=== PATIENT | male | born 1980 | race Hispanic/Latino ===

== ENCOUNTER 2016-08-20 18:03 | Emergency (ER) | payer OTHER ==
[~2016-08-20 18:03] MED LIST: ABIL2TAB2 PO; ACET120S PO; AMMO12CR4 EX; BUSP10TA PO; BUSP15TA47 PO; CELE40TA PO; HYDR10T PO; HYDR25T PO; IBUP80TA PO; LIPI10TA PO; NAPR500T2 PO; NORCOTAB PO; OMEP20CA3 PO; OMEP40CA2 PO; PAXI30TA11 PO; PRAZ1CAP PO; TRAZ100T4 PO; VITA100T PO; ZETI10TA2 PO; lortab elixer PO
[2016-08-20] MEDS ORDERED: KETOROLAC 30 MG/ML VIAL (J1885) As Ordered ONE (19:46)
[2016-08-20] MEDS ORDERED: METHOCARBAMOL 500 MG TAB As Ordered ONE (19:46)
--- NOTE | 2016-08-20 20:37 | EDDOCDS ---
Physician Documentation [facility] Name: Cy Preciado Age: 35 yrs Sex: Male : 1980 Arrival Date: 08/20/2016 Time: 18:03 Bed Private MD: NO PRIMARY PHYSICIAN, . Disposition: 08/20/16 20:30 Discharged to Home/Self Care. Impression: Strain of muscle, fascia and tendon of lower back. - Condition is Stable. - Discharge Instructions: Lumbosacral Strain, Back Pain, Adult, Muscle Strain. - Prescriptions for Ibuprofen 800 mg Oral Tablet - take 1 tablet by ORAL route every 8 hours As needed take with food; 30 tablet. Robaxin 500 mg Oral Tablet - take 2 tablet by ORAL route every 6 hours As needed; 40 tablet. - Medication Reconciliation, Local Pharmacy Hours form. - [facility]; When: Call to arrange an appointment; Reason: Recheck today's complaints, Continuance of care. - Problem is new. - Symptoms are unchanged. Historical: - Allergies: no known allergies; - Home Meds: 1. Paxil 20 mg oral tab 2. hydroxyzine HCl 25 mg Oral tab 1 tab 3 times per day 3. Risperdal 1 mg Oral tab 1 tab once daily HS 4. Lipitor 10 mg Oral tab 1 tab once daily 5. Zetia 10 mg Oral tab 1 tab once daily 6. omeprazole 20 mg Oral cpDR 1 cap once daily - PMHx: Anxiety; Depression; drug abuse; Hypercholesterolemia; - PSHx: Right rotator cuff repair; Cleft palate repair; Tonsillectomy; - Social history: Smoking status: Patient uses tobacco products, light tobacco smoker. No barriers to communication noted, The patient speaks fluent [place], Speaks appropriately for age. - Family history: Not pertinent. - : The pt / caregiver states he / she is not on anticoagulants. Home medication list is obtained from the patient. - Exposure Risk Screening:: None identified. Vital Signs: 08/20 18:04 BP 117 / 62; Pulse 93; Resp 18; Temp 97.4(O); Pulse Ox 98% on R/A; Weight 99.79 kg / elp 220 lbs (R); Height 5 ft. 7 in. (170.18 cm) (R); Pain 8/10; 20:23 BP 105 / 70; Pulse 85; Resp 20; Temp 97.8(T); Pulse Ox 97% on R/A; Pain 6/10; ar3 18:04 Body Mass Index 34.46 (99.79 kg, 170.18 cm) elp MDM: 19:42 Financial registration complete. kf3 19:43 [facility] Payment Agreement was scanned into [employer] and attached to record. kf3 19:44 Methocarbamol 1 grams PO once ordered. mo1 19:44 ketorolac 60 mg IM once ordered. mo1 19:45 UA Ordered. EDMS 20:19 UA Reviewed. mo1 Administered Medications: 19:50 Drug: Methocarbamol 1 grams [methocarbamol 500 mg tablet (2 tabs)] Route: PO; cz 19:51 Drug: ketorolac 60 mg [ketorolac 30 mg/mL (1 mL) injection solution (2 mL)] Route: IM; cz Site: right gluteus; Signatures: Dispatcher MedHost EDMS Jennifer Ruelas RN RN jo3 Michel Shafer, Reg Reg kf3 Pricila Peng RN RN rs3 Kareem Cho, PA PA mo1 Elliot Dowling RN cz The chart was reviewed and I authenticate all verbal orders and agree with the evaluation and treatment provided.Attachments: 19:43 [facility] Payment Agreement kf3 MTDD
--- NOTE | 2016-08-20 20:37 | EDDOCDS ---
Nurse's Notes [facility] Name: Cy Preciado Age: 35 yrs Sex: Male : 1980 Arrival Date: 08/20/2016 Time: 18:03 Bed Private MD: NO PRIMARY PHYSICIAN, . Diagnosis: Strain of muscle, fascia and tendon of lower back Presentation: 08/20 18:06 Presenting complaint: Patient states: Pain to right lower back. Pt reports that pain jo3 started this morning and increases with coughing and sneezing. Acute neurological deficits are not present. Mechanism of Injury: No Mechanism of Injury. Adult Sepsis Screening: The patient does not have new or worsening altered mentation. Patient's respiratory rate is less than 22. Systolic blood pressure is greater than 100. Patient has a qSOFA score of 0- Negative Sepsis Screen. Suicide/Homicide risk assessment- the patient denies having any suicidal and/or homicidal ideations and does not present with any other emotional, behavioral or mental health complaints. Status: Patient is not a food service specialist or dependent. Transition of care: patient was not received from another setting of care. 18:06 Acuity: ALLEY Level 4 jo3 18:06 Method Of Arrival: Walkin/Carried/Asstd jo3 Triage Assessment: 18:09 General: Appears in no apparent distress, Behavior is appropriate for age, cooperative. jo3 Pain: Pain currently is 8 out of 10 on a pain scale. HIV screening NA for this visit Offered previously. Neurological: No deficits noted. Level of Consciousness is awake, alert, Oriented to person, place, time. Respiratory: Airway is patent Respiratory effort is even, unlabored. : Denies all urinary symptoms. Derm: Skin is pink, warm & dry. Historical: - Allergies: no known allergies; - Home Meds: 1. Paxil 20 mg oral tab 2. hydroxyzine HCl 25 mg Oral tab 1 tab 3 times per day 3. Risperdal 1 mg Oral tab 1 tab once daily HS 4. Lipitor 10 mg Oral tab 1 tab once daily 5. Zetia 10 mg Oral tab 1 tab once daily 6. omeprazole 20 mg Oral cpDR 1 cap once daily - PMHx: Anxiety; Depression; drug abuse; Hypercholesterolemia; - PSHx: Right rotator cuff repair; Cleft palate repair; Tonsillectomy; - Social history: Smoking status: Patient uses tobacco products, light tobacco smoker. No barriers to communication noted, The patient speaks fluent Lithuanian, Speaks appropriately for age. - Family history: Not pertinent. - : The pt / caregiver states he / she is not on anticoagulants. Home medication list is obtained from the patient. - Exposure Risk Screening:: None identified. Screenin:35 Screening information is obtained from the patient. Fall risk: No risks identified. rs3 Assistance ADL's: requires no assistance with activities of daily living. Abuse/DV Screen: The patient / caregiver reports he/she is: not in a situation that causes fear, pain or injury. Nutritional screening: No deficits noted. Advance Directives: Currently, there is no health care proxy. There is no active DNR order. home support is adequate. Assessment: 20:34 General: Appears in no apparent distress, Behavior is appropriate for age, cooperative. rs3 Pain: Location: lumbar area. Neurological: Level of Consciousness is awake, alert, Supervisor Frame Assembly are equal bilaterally. Respiratory: Airway is patent Respiratory effort is even, unlabored. Derm: Skin is pink, warm & dry. Musculoskeletal: Circulation, motion, and sensation intact Capillary refill < 3 seconds Signs and Symptoms of Compartment Syndrome: no signs of compartment syndrome. Vital Signs: 18:04 BP 117 / 62; Pulse 93; Resp 18; Temp 97.4(O); Pulse Ox 98% on R/A; Weight 99.79 kg (R); elp Height 5 ft. 7 in. (170.18 cm) (R); Pain 8/10; 20:23 BP 105 / 70; Pulse 85; Resp 20; Temp 97.8(T); Pulse Ox 97% on R/A; Pain 6/10; ar3 18:04 Body Mass Index 34.46 (99.79 kg, 170.18 cm) [facility] Vitals: 18:04 Log In Time: August 20, 2016 at 18:02. [facility] ED Course: 18:04 Patient visited by Genesis Elena PCA. elp 18:04 NO PRIMARY PHYSICIAN, . is Private Physician. elp 18:04 Patient moved to Waiting elp 18:05 Patient visited by Genesis Elena PCA. elp 18:05 Patient moved to Pre RCE elp 18:08 Triage Initiated jo3 18:10 Patient visited by Jennifer Ruelas RN. jo3 19:21 Patient moved to Triage 3 ar3 19:28 Kareem Cho PA is PHCP. mo1 19:28 Junito Mcgowan DO is Attending Physician. mo1 19:38 Patient visited by Kareem Cho PA. mo1 19:43 [facility] Payment Agreement was scanned into [employer] and attached to record. kf3 19:46 UA Sent. ar3 19:50 Patient moved to TR2 ar3 20:20 Patient moved to PR1 / 25 ar3 20:21 Patient moved to PR2 / 26 ar3 20:23 Patient visited by Nay Ovalle PCA. ar3 20:30 [facility] is Referral Physician. mo1 20:36 The patient / caregiver is instructed regarding the plan of care and ED course. rs3 20:36 No IV's were initiated during this patient's visit. No procedures done that require rs3 assistance. Administered Medications: 19:50 Drug: Methocarbamol 1 grams [methocarbamol 500 mg tablet (2 tabs)] Route: PO; cz 19:51 Drug: ketorolac 60 mg [ketorolac 30 mg/mL (1 mL) injection solution (2 mL)] Route: IM; cz Site: right gluteus; Order Results: Lab Order: UA; SPEC'M 08/20/16 19:46 Test: APPEARANCE, URINE; Value: CLEAR; Range: CLEAR; Status: F Test: COLOR, URINE; Value: YELLOW; Range: YELLOW; Status: F Test: PH,URINE; Value: 5.0; Range: 5.0-9.0; Units: UNITS; Status: F Test: SPECIFIC GRAVITY URINE AUTO; Value: 1.023; Range: 1.002-1.035; Status: F Test: PROTEIN, URINE AUTO; Value: NEGATIVE; Range: NEGATIVE; Units: mg/dL; Status: F Test: GLUCOSE, URINE (UA) AUTO; Value: NEGATIVE; Range: NEGATIVE; Units: mg/dL; Status: F Test: KETONE, URINE AUTO; Value: NEGATIVE; Range: NEGATIVE; Units: mg/dL; Status: F Test: UROBILINOGEN, URINE AUTO; Value: 2.0; Range: 0.0-2.0; Abnormal: Above high normal; Units: mg/dL; Status: F Test: BILIRUBIN, URINE AUTO; Value: NEGATIVE; Range: NEGATIVE; Status: F Test: NITRITE, URINE AUTO; Value: NEGATIVE; Range: NEGATIVE; Status: F Test: LEUKOCYTE ESTERASE, URINE AUTO; Value: NEGATIVE; Range: NEGATIVE; Status: F Test: BLOOD, URINE BLOOD; Value: NEGATIVE; Range: NEGATIVE; Status: F Test: WBC, URINE AUTO; Value: 0; Range: 0-3; Units: /HPF; Status: F Test: RBC, URINE AUTO; Value: 1; Range: 0-3; Units: /HPF; Status: F Test: BACTERIA, URINE AUTO; Value: NEGATIVE; Range: NEGATIVE; Status: F Test: SQUAMOUS EPITHELIAL CELL UR AU; Value: 0; Range: 0-6; Units: /HPF; Status: F Test: MUCUS, URINE; Value: SMALL; Range: NEGATIVE; Status: F Test: HYALINE CAST, URINE AUTO; Value: 0; Range: 0-1; Units: /LPF; Status: F Outcome: 20:30 Discharge ordered by Provider. mo1 20:35 Discharge Assessment: patient administered narcotics - no. The following High Risk rs3 Discharge criteria are identified: None. Discharged to home with family. Condition: stable. Discharge instructions given to patient, Instructed on discharge instructions, follow up and referral plans. medication usage, Demonstrated understanding of instructions, medications, Pt was receptive of discharge instructions/ teaching. Prescriptions given X 2. No special radiology studies were completed. Property :Personal belongings accompany Pt. 20:36 Patient left the ED. rs3 Signatures: Elliot Dowling RN RN cz Helmerci, Jennifer, RN RN jo3 Michel Shafer, Reg Reg 3 Pricila Peng RN RN rs3 Nay Ovalle, IMMIGRATION PARALEGAL IMMIGRATION PARALEGAL ar3 Kareem Cho PA PA mo1 Genesis Elena, IMMIGRATION PARALEGAL IMMIGRATION PARALEGAL elp MTDD
--- NOTE | 2016-08-22 21:37 | EDDOCDS ---
Physician Documentation [facility] Name: Cy Preciado Age: 35 yrs Sex: Male : 1980 Arrival Date: 08/20/2016 Time: 18:03 Bed Private MD: NO PRIMARY PHYSICIAN, . Disposition: 08/20/16 20:30 Discharged to Home/Self Care. Impression: Strain of muscle, fascia and tendon of lower back. - Condition is Stable. - Discharge Instructions: Lumbosacral Strain, Back Pain, Adult, Muscle Strain. - Prescriptions for Ibuprofen 800 mg Oral Tablet - take 1 tablet by ORAL route every 8 hours As needed take with food; 30 tablet. Robaxin 500 mg Oral Tablet - take 2 tablet by ORAL route every 6 hours As needed; 40 tablet. - Medication Reconciliation, Local Pharmacy Hours form. - [facility] up: [facility]; When: Call to arrange an appointment; Reason: Recheck today's complaints, Continuance of care. - Problem is new. - Symptoms are unchanged. Historical: - Allergies: no known allergies; - Home Meds: 1. Paxil 20 mg oral tab 2. hydroxyzine HCl 25 mg Oral tab 1 tab 3 times per day 3. Risperdal 1 mg Oral tab 1 tab once daily HS 4. Lipitor 10 mg Oral tab 1 tab once daily 5. Zetia 10 mg Oral tab 1 tab once daily 6. omeprazole 20 mg Oral cpDR 1 cap once daily - PMHx: Anxiety; Depression; drug abuse; Hypercholesterolemia; - PSHx: Right rotator cuff repair; Cleft palate repair; Tonsillectomy; - Social history: Smoking status: Patient uses tobacco products, light tobacco smoker. No barriers to communication noted, The patient speaks fluent [place]ian, Speaks appropriately for age. - Family history: Not pertinent. - : The pt / caregiver states he / she is not on anticoagulants. Home medication list is obtained from the patient. - Exposure Risk Screening:: None identified. Vital Signs: 08/20 18:04 BP 117 / 62; Pulse 93; Resp 18; Temp 97.4(O); Pulse Ox 98% on R/A; Weight 99.79 kg / elp 220 lbs (R); Height 5 ft. 7 in. (170.18 cm) (R); Pain 8/10; 20:23 BP 105 / 70; Pulse 85; Resp 20; Temp 97.8(T); Pulse Ox 97% on R/A; Pain 6/10; ar3 18:04 Body Mass Index 34.46 (99.79 kg, 170.18 cm) elp MDM: 19:42 Financial registration complete. kf3 19:43 [facility] Payment Agreement was scanned into [employer] and attached to record. kf3 19:44 Methocarbamol 1 grams PO once ordered. mo1 19:44 ketorolac 60 mg IM once ordered. mo1 19:45 UA Ordered. EDMS 20:19 UA Reviewed. mo1 22:08 T-Sheet-- Draft Copy was scanned into [employer] and attached to record. klr Administered Medications: 19:50 Drug: Methocarbamol 1 grams [methocarbamol 500 mg tablet (2 tabs)] Route: PO; cz 19:51 Drug: ketorolac 60 mg [ketorolac 30 mg/mL (1 mL) injection solution (2 mL)] Route: IM; cz Site: right gluteus; Signatures: Dispatcher MedHost EDMS Jennifer RuelasRN RN jo3 Michel Shafer, Reg Reg kf3 Pricila Peng RN RN rs3 Kareem Cho PA PA mo1 Madhuri Guzmán klr Elliot Dowling RN cz The chart was reviewed and I authenticate all verbal orders and agree with the evaluation and treatment provided.Attachments: :43 [facility] Payment Agreement kf3 22:08 T-Sheet-- Draft Copy klr Chart Complete MTDD
--- NOTE | 2016-08-22 21:37 | EDDOCDS ---
Nurse's Notes [facility] Name: Cy Preciado Age: 35 yrs Sex: Male : 1980 Arrival Date: 08/20/2016 Time: 18:03 Bed Private MD: NO PRIMARY PHYSICIAN, . Diagnosis: Strain of muscle, fascia and tendon of lower back Presentation: 08/20 18:06 Presenting complaint: Patient states: Pain to right lower back. Pt reports that pain jo3 started this morning and increases with coughing and sneezing. Acute neurological deficits are not present. Mechanism of Injury: No Mechanism of Injury. Adult Sepsis Screening: The patient does not have new or worsening altered mentation. Patient's respiratory rate is less than 22. Systolic blood pressure is greater than 100. Patient has a qSOFA score of 0- Negative Sepsis Screen. Suicide/Homicide risk assessment- the patient denies having any suicidal and/or homicidal ideations and does not present with any other emotional, behavioral or mental health complaints. Status: Patient is not a animal services officer or dependent. Transition of care: patient was not received from another setting of care. 18:06 Acuity: ALLEY Level 4 jo3 18:06 Method Of Arrival: Walkin/Carried/Asstd jo3 Triage Assessment: 18:09 General: Appears in no apparent distress, Behavior is appropriate for age, cooperative. jo3 Pain: Pain currently is 8 out of 10 on a pain scale. HIV screening NA for this visit Offered previously. Neurological: No deficits noted. Level of Consciousness is awake, alert, Oriented to person, place, time. Respiratory: Airway is patent Respiratory effort is even, unlabored. : Denies all urinary symptoms. Derm: Skin is pink, warm & dry. Historical: - Allergies: no known allergies; - Home Meds: 1. Paxil 20 mg oral tab 2. hydroxyzine HCl 25 mg Oral tab 1 tab 3 times per day 3. Risperdal 1 mg Oral tab 1 tab once daily HS 4. Lipitor 10 mg Oral tab 1 tab once daily 5. Zetia 10 mg Oral tab 1 tab once daily 6. omeprazole 20 mg Oral cpDR 1 cap once daily - PMHx: Anxiety; Depression; drug abuse; Hypercholesterolemia; - PSHx: Right rotator cuff repair; Cleft palate repair; Tonsillectomy; - Social history: Smoking status: Patient uses tobacco products, light tobacco smoker. No barriers to communication noted, The patient speaks fluent Turkish, Speaks appropriately for age. - Family history: Not pertinent. - : The pt / caregiver states he / she is not on anticoagulants. Home medication list is obtained from the patient. - Exposure Risk Screening:: None identified. Screenin:35 Screening information is obtained from the patient. Fall risk: No risks identified. rs3 Assistance ADL's: requires no assistance with activities of daily living. Abuse/DV Screen: The patient / caregiver reports he/she is: not in a situation that causes fear, pain or injury. Nutritional screening: No deficits noted. Advance Directives: Currently, there is no health care proxy. There is no active DNR order. home support is adequate. Assessment: 20:34 General: Appears in no apparent distress, Behavior is appropriate for age, cooperative. rs3 Pain: Location: lumbar area. Neurological: Level of Consciousness is awake, alert, Erector Operator are equal bilaterally. Respiratory: Airway is patent Respiratory effort is even, unlabored. Derm: Skin is pink, warm & dry. Musculoskeletal: Circulation, motion, and sensation intact Capillary refill < 3 seconds Signs and Symptoms of Compartment Syndrome: no signs of compartment syndrome. Vital Signs: 18:04 BP 117 / 62; Pulse 93; Resp 18; Temp 97.4(O); Pulse Ox 98% on R/A; Weight 99.79 kg (R); elp Height 5 ft. 7 in. (170.18 cm) (R); Pain 8/10; 20:23 BP 105 / 70; Pulse 85; Resp 20; Temp 97.8(T); Pulse Ox 97% on R/A; Pain 6/10; ar3 18:04 Body Mass Index 34.46 (99.79 kg, 170.18 cm) [facility] Vitals: 18:04 Log In Time: August 20, 2016 at 18:02. [facility] ED Course: 18:04 Patient visited by Genesis Elena PCA. elp 18:04 NO PRIMARY PHYSICIAN, . is Private Physician. elp 18:04 Patient moved to Waiting elp 18:05 Patient visited by Genesis Elena PCA. elp 18:05 Patient moved to Pre RCE elp 18:08 Triage Initiated jo3 18:10 Patient visited by Jennifer Ruelas RN. jo3 19:21 Patient moved to Triage 3 ar3 19:28 Kareem Cho PA is PHCP. mo1 19:28 Junito Mcgowan DO is Attending Physician. mo1 19:38 Patient visited by Kareem Cho PA. mo1 19:43 [facility] Payment Agreement was scanned into [employer] and attached to record. kf3 19:46 UA Sent. ar3 19:50 Patient moved to TR2 ar3 20:20 Patient moved to PR1 / 25 ar3 20:21 Patient moved to PR2 / 26 ar3 20:23 Patient visited by Nay Ovalle PCA. ar3 20:30 [facility] is Referral Physician. mo1 20:36 The patient / caregiver is instructed regarding the plan of care and ED course. rs3 20:36 No IV's were initiated during this patient's visit. No procedures done that require rs3 assistance. 22:08 T-Sheet-- Draft Copy was scanned into [employer] and attached to record. klr Administered Medications: 19:50 Drug: Methocarbamol 1 grams [methocarbamol 500 mg tablet (2 tabs)] Route: PO; cz 19:51 Drug: ketorolac 60 mg [ketorolac 30 mg/mL (1 mL) injection solution (2 mL)] Route: IM; cz Site: right gluteus; Order Results: Lab Order: UA; SPEC'M 08/20/16 19:46 Test: APPEARANCE, URINE; Value: CLEAR; Range: CLEAR; Status: F Test: COLOR, URINE; Value: YELLOW; Range: YELLOW; Status: F Test: PH,URINE; Value: 5.0; Range: 5.0-9.0; Units: UNITS; Status: F Test: SPECIFIC GRAVITY URINE AUTO; Value: 1.023; Range: 1.002-1.035; Status: F Test: PROTEIN, URINE AUTO; Value: NEGATIVE; Range: NEGATIVE; Units: mg/dL; Status: F Test: GLUCOSE, URINE (UA) AUTO; Value: NEGATIVE; Range: NEGATIVE; Units: mg/dL; Status: F Test: KETONE, URINE AUTO; Value: NEGATIVE; Range: NEGATIVE; Units: mg/dL; Status: F Test: UROBILINOGEN, URINE AUTO; Value: 2.0; Range: 0.0-2.0; Abnormal: Above high normal; Units: mg/dL; Status: F Test: BILIRUBIN, URINE AUTO; Value: NEGATIVE; Range: NEGATIVE; Status: F Test: NITRITE, URINE AUTO; Value: NEGATIVE; Range: NEGATIVE; Status: F Test: LEUKOCYTE ESTERASE, URINE AUTO; Value: NEGATIVE; Range: NEGATIVE; Status: F Test: BLOOD, URINE BLOOD; Value: NEGATIVE; Range: NEGATIVE; Status: F Test: WBC, URINE AUTO; Value: 0; Range: 0-3; Units: /HPF; Status: F Test: RBC, URINE AUTO; Value: 1; Range: 0-3; Units: /HPF; Status: F Test: BACTERIA, URINE AUTO; Value: NEGATIVE; Range: NEGATIVE; Status: F Test: SQUAMOUS EPITHELIAL CELL UR AU; Value: 0; Range: 0-6; Units: /HPF; Status: F Test: MUCUS, URINE; Value: SMALL; Range: NEGATIVE; Status: F Test: HYALINE CAST, URINE AUTO; Value: 0; Range: 0-1; Units: /LPF; Status: F Outcome: 20:30 Discharge ordered by Provider. mo1 20:35 Discharge Assessment: patient administered narcotics - no. The following High Risk rs3 Discharge criteria are identified: None. Discharged to home with family. Condition: stable. Discharge instructions given to patient, Instructed on discharge instructions, follow up and referral plans. medication usage, Demonstrated understanding of instructions, medications, Pt was receptive of discharge instructions/ teaching. Prescriptions given X 2. No special radiology studies were completed. Property :Personal belongings accompany Pt. 20:36 Patient left the ED. rs3 Signatures: Elliot Dowling RN RN cz Helmerci, Jennifer, RN RN jo3 Michel Shafer, Reg Reg kf3 Pricila Peng RN RN rs3 Nay Ovalle, TRAVEL OCCUPATIONAL THERAPIST TRAVEL OCCUPATIONAL THERAPIST Kareem Benton PA PA mo1 Genesis Elena, TRAVEL OCCUPATIONAL THERAPIST TRAVEL OCCUPATIONAL THERAPIST Madhuri Zamora Chart Complete MTDD
--- NOTE | 2016-08-22 21:37 | EDDOCDS ---
Physician Documentation [facility] Name: Cy Preciado Age: 35 yrs Sex: Male : 1980 Arrival Date: 08/20/2016 Time: 18:03 Bed Private MD: NO PRIMARY PHYSICIAN, . Disposition: 08/20/16 20:30 Discharged to Home/Self Care. Impression: Strain of muscle, fascia and tendon of lower back. - Condition is Stable. - Discharge Instructions: Lumbosacral Strain, Back Pain, Adult, Muscle Strain. - Prescriptions for Ibuprofen 800 mg Oral Tablet - take 1 tablet by ORAL route every 8 hours As needed take with food; 30 tablet. Robaxin 500 mg Oral Tablet - take 2 tablet by ORAL route every 6 hours As needed; 40 tablet. - Medication Reconciliation, Local Pharmacy Hours form. - [facility]: [facility]; When: Call to arrange an appointment; Reason: Recheck today's complaints, Continuance of care. - Problem is new. - Symptoms are unchanged. Historical: - Allergies: no known allergies; - Home Meds: 1. Paxil 20 mg oral tab 2. hydroxyzine HCl 25 mg Oral tab 1 tab 3 times per day 3. Risperdal 1 mg Oral tab 1 tab once daily HS 4. Lipitor 10 mg Oral tab 1 tab once daily 5. Zetia 10 mg Oral tab 1 tab once daily 6. omeprazole 20 mg Oral cpDR 1 cap once daily - PMHx: Anxiety; Depression; drug abuse; Hypercholesterolemia; - PSHx: Right rotator cuff repair; Cleft palate repair; Tonsillectomy; - Social history: Smoking status: Patient uses tobacco products, light tobacco smoker. No barriers to communication noted, The patient speaks fluent Bolivian, Speaks appropriately for age. - Family history: Not pertinent. - : The pt / caregiver states he / she is not on anticoagulants. Home medication list is obtained from the patient. - Exposure Risk Screening:: None identified. Vital Signs: 08/20 18:04 BP 117 / 62; Pulse 93; Resp 18; Temp 97.4(O); Pulse Ox 98% on R/A; Weight 99.79 kg / elp 220 lbs (R); Height 5 ft. 7 in. (170.18 cm) (R); Pain 8/10; 20:23 BP 105 / 70; Pulse 85; Resp 20; Temp 97.8(T); Pulse Ox 97% on R/A; Pain 6/10; ar3 18:04 Body Mass Index 34.46 (99.79 kg, 170.18 cm) elp MDM: 19:42 Financial registration complete. kf3 19:43 [facility] Payment Agreement was scanned into [employer] and attached to record. kf3 19:44 Methocarbamol 1 grams PO once ordered. mo1 19:44 ketorolac 60 mg IM once ordered. mo1 19:45 UA Ordered. EDMS 20:19 UA Reviewed. mo1 22:08 T-Sheet-- Draft Copy was scanned into [employer] and attached to record. klr Administered Medications: 19:50 Drug: Methocarbamol 1 grams [methocarbamol 500 mg tablet (2 tabs)] Route: PO; cz 19:51 Drug: ketorolac 60 mg [ketorolac 30 mg/mL (1 mL) injection solution (2 mL)] Route: IM; cz Site: right gluteus; Signatures: Dispatcher [employer] EDMS Jennifer RuelasRN RN jo3 Michel Shafer, Reg Reg kf3 Pricila Peng RN RN rs3 Kareem Cho PA PA mo1 Madhuri Guzmán klr Elliot Dowling RN cz The chart was reviewed and I authenticate all verbal orders and agree with the evaluation and treatment provided.Attachments: :43 [facility] Payment Agreement kf3 22:08 T-Sheet-- Draft Copy klr Chart Complete MTDD
== END 2016-08-20 20:36 | disposition home or self-care (01) ==
LOC: M ED 18:03
DX: S33.9XXA Sprain of unspecified parts of lumbar spine and pelvis, initial encounter (principal); X58.XXXA Exposure to other specified factors, initial encounter; Y92.019 Unspecified place in single-family (private) house as the place of occurrence of the external cause; Y93.89 Activity, other specified; Y99.8 Other external cause status; F41.9 Anxiety disorder, unspecified; F32.9 Major depressive disorder, single episode, unspecified; F19.10 Other psychoactive substance abuse, uncomplicated; E78.00 Pure hypercholesterolemia, unspecified; F17.210 Nicotine dependence, cigarettes, uncomplicated; Z79.899 Other long term (current) drug therapy
CPT/HCPCS: 81001; 96372; 99283; J1885

== ENCOUNTER → 2016-09-04 | Outpatient (CLI) | payer OTHER ==
[2016-09-04 12:54] LABS: ALBUMIN 3.6 GM/DL (3.2-5.2); ALBUMIN/GLOBULIN RATIO 1.09 (1.00-1.93); ALKALINE PHOSPHATASE 58 U/L (45-117); ALT/SGPT 67 U/L (12-78); ANION GAP 6 MEQ/L (8-16); AST/SGOT 28 U/L (15-37); BILIRUBIN,TOTAL 0.4 MG/DL (0.2-1.0); BLOOD UREA NITROGEN 7 MG/DL (7-18); CALCIUM LEVEL 8.7 MG/DL (8.5-10.1); CARBON DIOXIDE LEVEL 27 MEQ/L (21-32); CHLORIDE LEVEL 110 MEQ/L (98-107); CHOLESTEROL LEVEL 167 MG/DL (<200); CREATININE FOR GFR 0.88 MG/DL (0.70-1.30); GLOMERULAR FILTRATION RATE > 60.0 (>60); GLUCOSE, FASTING 100 MG/DL (70-105); POTASSIUM SERUM 4.3 MEQ/L (3.5-5.1); SODIUM LEVEL 143 MEQ/L (136-145); TOTAL PROTEIN 6.9 GM/DL (6.4-8.2); TRIGLYCERIDES LEVEL 131 MG/DL (<150)
[2016-09-04 13:44] LABS: BASO # 0.1 K/mm3 (0.0-0.2); BASO % 1.5 % (0.0-1.0); EOS # 0.2 K/mm3 (0.0-0.50); EOS % 2.9 % (0.0-3.0); LARGE UNSTAINED CELL # 0.2 K/mm3 (0.0-0.4); LARGE UNSTAINED CELL % 1.7 % (0.0-4.0); LYMPH # 3.7 K/mm3 (1.5-4.5); LYMPH % 39.6 % (24.0-44.0); MEAN CORPUSCULAR HEMOGLOBIN 26.6 pg (27.0-33.0); MEAN CORPUSCULAR HGB CONC 32.2 g/dl (32.0-36.5); MEAN CORPUSCULAR VOLUME 82.5 fl (80.0-96.0); MONO # 0.5 K/mm3 (0.0-0.8); MONO % 5.4 % (0.0-5.0); NEUTROPHILS # 4.3 K/mm3 (1.8-7.7); NEUTROPHILS % 48.9 % (36.0-66.0); PLATELET COUNT, AUTOMATED 342 k/mm3 (150-450); RED CELL DISTRIBUTION WIDTH 13.2 % (11.5-14.5); WHITE BLOOD COUNT 8.8 K/mm3 (4.0-10.0)
== END ==
LOC: M LAB 11:36
PROVIDERS: ATTEND Physician Assistant Medical
DX: E78.4 Other hyperlipidemia (principal); R73.9 Hyperglycemia, unspecified

== ENCOUNTER → 2016-09-08 | Outpatient (CLI) | payer OTHER ==
--- NOTE | 2016-09-08 12:38 | REP ---
Thoracic spine series: Three views. History: Pain in the thoracic spine. Findings: Thoracic vertebral body heights are preserved. Alignment is normal. Minimal discogenic spurring is seen in the upper and mid thoracic spine. There is an orthopedic metallic anchor device in one of the humeral head seen on the swimmer's lateral view. Pedicles and posterior elements are intact. No paravertebral soft-tissue mass or edema is seen. Impression: Minimal discogenic spurring. Otherwise negative thoracic spine. Signed by Rogerio Freedman MD 09/08/2016 07:25 P
--- NOTE | 2016-09-08 12:42 | REP ---
Lumbar spine series: Three lateral views, flexion/extension and neutral position. History: Pain. Findings: Lumbar vertebral body heights are preserved. Alignment is normal. Mild discogenic spurring is seen at L4-5. Flexion/extension views show no subluxation or instability. Impression: No subluxation or instability seen. Signed by Rogerio Freedman MD 09/08/2016 07:25 P
== END | disposition home or self-care (01) ==
LOC: M RAD 11:01
PROVIDERS: ATTEND Nurse Practitioner Family
DX: M54.6 Pain in thoracic spine (principal); M47.814 Spondylosis without myelopathy or radiculopathy, thoracic region

== ENCOUNTER → 2016-10-30 | Outpatient (CLI) | payer OTHER ==
[2016-10-30 08:14] LABS: ALBUMIN 3.3 GM/DL (3.2-5.2); ALBUMIN/GLOBULIN RATIO 0.97 (1.00-1.93); ALKALINE PHOSPHATASE 58 U/L (45-117); ALT/SGPT 58 U/L (12-78); ANION GAP 7 MEQ/L (8-16); AST/SGOT 21 U/L (15-37); BILIRUBIN,DIRECT < 0.1 MG/DL (0.0-0.2); BILIRUBIN,TOTAL 0.2 MG/DL (0.2-1.0); BLOOD UREA NITROGEN 14 MG/DL (7-18); CALCIUM LEVEL 8.3 MG/DL (8.5-10.1); CARBON DIOXIDE LEVEL 28 MEQ/L (21-32); CHLORIDE LEVEL 106 MEQ/L (98-107); CREATININE FOR GFR 0.96 MG/DL (0.70-1.30); GLOMERULAR FILTRATION RATE > 60.0 (>60); GLUCOSE, FASTING 120 MG/DL (70-105); PHOSPHORUS LEVEL 2.9 MG/DL (2.5-4.9); POTASSIUM SERUM 4.1 MEQ/L (3.5-5.1); SODIUM LEVEL 141 MEQ/L (136-145); TOTAL PROTEIN 6.7 GM/DL (6.4-8.2)
[2016-10-30 08:29] LABS: MEAN CORPUSCULAR HEMOGLOBIN 27.2 pg (27.0-33.0); MEAN CORPUSCULAR HGB CONC 32.1 g/dl (32.0-36.5); MEAN CORPUSCULAR VOLUME 84.8 fl (80.0-96.0); RED CELL DISTRIBUTION WIDTH 12.6 % (11.5-14.5); WHITE BLOOD COUNT 7.9 K/mm3 (4.0-10.0)
== END ==
LOC: M LAB 07:17
PROVIDERS: ATTEND Podiatrist Foot & Ankle Surgery
DX: Z79.899 Other long term (current) drug therapy (principal); B35.1 Tinea unguium

== ENCOUNTER → 2016-12-26 | Outpatient (CLI) | payer OTHER ==
--- NOTE | 2016-12-26 15:05 | REP ---
Cervical spine series: Eight views. History: Neck pain. Findings: Lateral views done in flexion/extension and neutral position show preserved vertebral body heights and normal alignment. No subluxation or instability is seen. There is minimal discogenic spurring anteriorly at C6-7. Swimmers lateral view shows no additional abnormality. AP and open mouth odontoid views are unremarkable. Oblique radiographs demonstrate intact neural foramina bilaterally at each cervical level and normally aligned facets. Impression: Minimal discogenic spurring at C6-C7. Otherwise negative cervical spine views. Signed by Rogerio Freedman MD 12/26/2016 05:08 P
--- NOTE | 2016-12-26 15:06 | REP ---
Lumbar spine series: Seven views. History: Low back pain. Comparison study September 08, 2016. Findings: Minimal discogenic spurring is again seen at the L4-5 disc level on lateral radiograph. Lumbar vertebral body heights are preserved and alignment is normal. Oblique radiographs demonstrate mild spurring at L2-3. Pedicles and posterior elements are intact. Sacrum and SI joints are unremarkable. Impression: Minimal degenerative disc changes. Signed by Rogerio Freedman MD 12/26/2016 05:08 P
== END ==
LOC: M RAD 13:14
PROVIDERS: ATTEND Nurse Practitioner Family
DX: M54.2 Cervicalgia (principal); M54.5 Low back pain

== ENCOUNTER → 2017-02-07 | Outpatient (CLI) | payer OTHER ==
[~2017-02-07] MED LIST changes: +ABIL1TAB13 PO; -ABIL2TAB2 PO; +HYDR-3363 PO; +HYDR-643 PO; -HYDR10T PO; -HYDR25T PO; -NAPR500T2 PO; +NAPR500T3 PO; +TRAZ-136 PO; -TRAZ100T4 PO; -ZETI10TA2 PO; +ZETI10TA30 PO
--- NOTE | 2017-02-07 12:04 | REP ---
MR LUMBAR SPINE WITHOUT CONTRAST: HISTORY: Back and bilateral leg pain. There is no disc bulge or herniation at the L1-2 level. The L1 nerves exit the neural foramina without compression. A diffuse disc bulge is present at the L2-3 level. There is minimal compression of the thecal sac. There is hypertrophy of the posterior articulating facets. The L2 nerves exit the neural foramina without compression. A diffuse disc bulge is present at the L3-4 level. There is minimal compression of the thecal sac. There is hypertrophy of the posterior articulating facets. The L3 nerves exit the neural foramina without compression. A diffuse disc bulge is present at the L4-5 level. There is minimal compression of the thecal sac. There is hypertrophy of the posterior articulating facets. The L4 nerves exit the neural foramina without compression. A diffuse disc bulge is present at the L5-S1 level. There is no thecal sac or nerve compression. There is hypertrophy of the posterior articulating facets. The L5 nerves exit the neural foramina without compression. The conus medullaris is normal in appearance terminating at the level of the L1-2 intervertebral disc. Normal signal intensity is present in the lumbar intervertebral discs and vertebral bodies. IMPRESSION: 1. Diffuse disc bulges at the L2-3 through L4-5 levels with minimal thecal sac compression. 2. Diffuse disc bulge at the L5-S1 level without thecal sac or nerve compression. Signed by Richy Estevez MD 02/07/2017 12:11 P
[2017-02-07 13:49] LABS: ANION GAP 6 MEQ/L (8-16); BLOOD UREA NITROGEN 9 MG/DL (7-18); CALCIUM LEVEL 8.7 MG/DL (8.5-10.1); CARBON DIOXIDE LEVEL 26 MEQ/L (21-32); CHLORIDE LEVEL 109 MEQ/L (98-107); CHOLESTEROL LEVEL 163 MG/DL (<200); CREATININE FOR GFR 0.86 MG/DL (0.70-1.30); GLOMERULAR FILTRATION RATE > 60.0 (>60); GLUCOSE, FASTING 98 MG/DL (70-105); POTASSIUM SERUM 4.4 MEQ/L (3.5-5.1); SODIUM LEVEL 141 MEQ/L (136-145); TRIGLYCERIDES LEVEL 170 MG/DL (<150)
== END ==
LOC: M RAD 10:33
PROVIDERS: ATTEND Nurse Practitioner Family
DX: M51.36 Other intervertebral disc degeneration, lumbar region (principal); M51.37 Other intervertebral disc degeneration, lumbosacral region; E55.9 Vitamin D deficiency, unspecified; E78.5 Hyperlipidemia, unspecified; R35.1 Nocturia

== ENCOUNTER → 2017-03-12 | Outpatient (CLI) | payer MEDICAID | LOC: M OUTALCOH 12:31 | PROVIDERS: ATTEND Psychiatry & Neurology Psychiatry | DX: Z13.9 Encounter for screening, unspecified (principal); F12.20 Cannabis dependence, uncomplicated; F14.20 Cocaine dependence, uncomplicated ==

== ENCOUNTER 2017-04-04 09:00 | Outpatient (RCR) | payer MEDICAID | END 2017-04-05 | LOC: M OUTALCOH 09:00 | PROVIDERS: ATTEND Psychiatry & Neurology Psychiatry | DX: F14.20 Cocaine dependence, uncomplicated (principal); F12.20 Cannabis dependence, uncomplicated; F17.200 Nicotine dependence, unspecified, uncomplicated ==

== ENCOUNTER → 2017-04-30 | Outpatient (CLI) | payer MEDICAID, OTHER | LOC: M LAB 10:48 | PROVIDERS: ATTEND Family Medicine Addiction Medicine | DX: Z02.89 Encounter for other administrative examinations (principal) ==

== ENCOUNTER 2017-05-02 08:45 | Outpatient (RCR) | payer MEDICAID | END 2017-05-05 | LOC: M OUTALCOH 08:45 | PROVIDERS: ATTEND Psychiatry & Neurology Psychiatry | DX: F12.20 Cannabis dependence, uncomplicated (principal); F14.20 Cocaine dependence, uncomplicated; F17.200 Nicotine dependence, unspecified, uncomplicated ==

== ENCOUNTER 2017-07-09 14:47 | Outpatient (RCR) | payer MEDICAID | END 2017-08-05 | LOC: M OUTALCOH 07-17 09:00 | DX: F12.20 Cannabis dependence, uncomplicated (principal); F14.20 Cocaine dependence, uncomplicated; F17.200 Nicotine dependence, unspecified, uncomplicated ==

== ENCOUNTER 2017-09-27 12:35 | Emergency (ER) | payer OTHER, MEDICAID ==
[2017-09-27] MEDS: PERCOCET 5MG/325MG TAB PO (12:59)
== END 2017-09-27 13:44 | disposition home or self-care (01) ==
LOC: M ED 12:35
DX: S93.401A Sprain of unspecified ligament of right ankle, initial encounter (principal); W00.9XXA Unspecified fall due to ice and snow, initial encounter; Y92.9 Unspecified place or not applicable; Y93.89 Activity, other specified; F41.9 Anxiety disorder, unspecified; F31.9 Bipolar disorder, unspecified; K21.9 Gastro-esophageal reflux disease without esophagitis; F17.200 Nicotine dependence, unspecified, uncomplicated; Z79.899 Other long term (current) drug therapy
CPT/HCPCS: 73610

== ENCOUNTER 2019-01-04 06:45 | Inpatient (IN) | payer OTHER, SELFPAY ==
[~2019-01-04] VITALS: Ht 170.2 cm; Wt 93.0 kg
[~2019-01-04 06:45] MED LIST changes: -AMMO12CR4 EX; +AMMO12CR7 EX; +CYAN100T5 PO; +HYDR-3715 PO; +NAPR-885 PO; -NAPR500T3 PO; -NORCOTAB PO; +PERC5TAB12 PO; -TRAZ-136 PO; +TRAZ-163 PO; -VITA100T PO
[2019-01-04 07:23] LABS: HEMATOCRIT 46.8 % (42.0-52.0); HEMOGLOBIN 15.8 g/dl (13.5-17.5); MEAN CORPUSCULAR HEMOGLOBIN 28.9 pg (27.0-33.0); MEAN CORPUSCULAR HGB CONC 33.8 g/dl (32.0-36.5); MEAN CORPUSCULAR VOLUME 85.7 fl (80.0-96.0); PLATELET COUNT, AUTOMATED 337 10^3/uL (150-450); RED BLOOD COUNT 5.46 10^6/uL (4.30-6.10); WHITE BLOOD COUNT 20.5 10^3/uL (4.0-10.0)
[2019-01-04 07:51] LABS: AMPHETAMINES LEVEL URINE NEGATIVE (NEGATIVE); BARBITURATES URINE NEGATIVE (NEGATIVE); BENZODIAZEPINES URINE NEGATIVE (NEGATIVE); CANNABINOIDS URINE POSITIVE (NEGATIVE); COCAINE METABOLITE URINE POSITIVE (NEGATIVE); METHADONE URINE NEGATIVE (NEGATIVE); OPIATES URINE NEGATIVE (NEGATIVE); PHENCYCLIDINE URINE NEGATIVE (NEGATIVE)
[2019-01-04 08:06] LABS: ACETAMINOPHEN LEVEL < 2.0 UG/ML (10.0-30.0); ALBUMIN 3.8 GM/DL (3.2-5.2); ALT/SGPT 21 U/L (12-78); BILIRUBIN,DIRECT 0.2 MG/DL (0.0-0.2); BLOOD UREA NITROGEN 3 MG/DL (7-18); CARBON DIOXIDE LEVEL 24 MEQ/L (21-32); CHLORIDE LEVEL 105 MEQ/L (98-107); CREATININE FOR GFR 0.88 MG/DL (0.70-1.30); ETHYL ALCOHOL (ETHANOL) 0.008 % (0.000-0.010); GLOMERULAR FILTRATION RATE > 60.0 (>60); GLUCOSE, FASTING 119 MG/DL (70-100); POTASSIUM SERUM 3.2 MEQ/L (3.5-5.1); SALICYLATE LEVEL < 1.7 MG/DL (5.0-30.0); SODIUM LEVEL 140 MEQ/L (136-145); THYROID STIMULATING HORMONE 0.685 uIU/ML (0.358-3.740); TOTAL PROTEIN 7.6 GM/DL (6.4-8.2)
--- NOTE | 2019-01-04 08:24 | REP ---
Clinical: Leukocytosis . Comparison: 06/12/2014 . Technique: PA and lateral. Findings: The mediastinum and cardiac silhouette are normal. The lung [place] are clear and without acute consolidation, effusion, or pneumothorax. The skeletal structures are intact and normal. Impression: 1. No acute cardiopulmonary process. Electronically Signed by Guido Richard MD 01/04/2019 08:17 A
[2019-01-04] MEDS ORDERED: POTASSIUM CHLORIDE 10 MEQ SR TABLET PO ONE (08:45)
[2019-01-04 09:00] LABS: BASO # 0.1 10^3/uL (0.0-0.2); BASO % 0.2 % (0.0-1.0); EOS # 0.1 10^3/uL (0.0-0.50); EOS % 0.4 % (0.0-3.0); LYMPH # 3.2 10^3/uL (1.5-4.5); LYMPH % 15.5 % (24.0-44.0); MONO # 0.5 10^3/uL (0.0-0.8); MONO % 2.5 % (0.0-5.0); NEUTROPHILS # 16.5 10^3/uL (1.8-7.7)
[2019-01-04] MEDS: NICOTINE 21MG/24HR 1 EA TRANSDERMAL TD SCH (09:00)
[2019-01-04] MEDS ORDERED: MOM 30ML SUSPENSION UDC PO PRN (10:30)
[2019-01-04] MEDS ORDERED: OLANZapine ORAL DISINTEGRATING TAB 5MG PO PRN (10:30)
[2019-01-04 11:32] VITALS: BP 119/84
--- NOTE | 2019-01-04 15:27 | HPEPDOC ---
General Date of Admission Jan 04, 2019 at 10:19 Date of Service: Jan 04, 2019 Attending Physician: YURI THOMPSON MD Chief Complaint The patient is a 38-year-old male admitted with a reason for visit of Depressive Disorder. History of Present Illness Patient is a 38-year-old male, past medical history significant for hypertension, hyperlipidemia, obstructive sleep apnea, noncompliant with medications on CPAP use, presenting to the hospital on account of acute depression with suicidal ideation. Patient had been out of his medications for about 6 months due to insurance iss ues. He reported poor sleep, appetite, auditory hallucinations. He was admitted to inpatient psychiatric unit for further evaluation and management. On initial evaluation, laboratory data was significant for a white blood count of 20. Patient reports he was sick about a week ago with cough and chills. He took [id number] Robitussin and felt better. Home Medications No Active Prescriptions or Reported Meds Allergies Coded Allergies: No Known Drug Allergies (Verified Allergy, Unknown, 01/04/19) Past Medical History Medical History Hypertension Hyperlipidemia Depression Obstructive sleep apnea Polysubstance abuse, cocaine, THC Surgical History Right shoulder surgery Cleft palate repair Family History Father: Cardiovascular disease, myocardial infarction. Mother: Diabetes mellitus, hypertension. Social History * Smoker: less than 1 pack/day Alcohol: occationally Drugs: cocaine, marijuana A-FIB/CHADSVASC A-FIB History Current/History of A-Fib/PAF?: No Current PO Anticoag Therapy: No Review of Systems Other systems A pertinent 10 point review of systems was completed, negative except as stated in the history of presenting illness Physical Examination Other physical findings GENERAL: NAD SKIN : Warm, dry intact HEENT: Atraumatic, normocephalic, PERRL, moist mucous membrane CARDIOVASCULAR: Regular rate and rhythm, S1S2, no JVD, no edema, distal pulses + and palpable RESP: CTAB, no accessory muscle use noted ABDOMEN: BS+ non distended non tender MS: no joint deformities NEURO: Alert and oriented x 3, CN2-12 grossly intact PSYCH: no anxiety or agitation, appropriate mood and affect. Vital Signs Vital Signs Date Time Temp Pulse Resp B/P (MAP) Pulse Ox O2 Delivery O2 Flow Rate FiO2 01/04/19 11:32 97.3 76 16 119/84 (96) 98 01/04/19 10:42 Room Air Laboratory Data Labs 24H Laboratory Tests 2 01/04/19 07:11: Urine Color YELLOW, Urine Appearance CLEAR, Urine pH 5.0, Urine Specific [place] 1.013, Urine Protein NEGATIVE, Urine Glucose (UA) NEGATIVE, Urine Ketones NEGATIVE, Urine Blood NEGATIVE, Urine Nitrite NEGATIVE, Urine Bilirubin NEGATIVE, Urine Urobilinogen 0.2, Urine Leukocyte Esterase NEGATIVE, Urine WBC (Auto) 1, Urine RBC (Auto) 0, Urine Hyaline Casts (Auto) 0, Urine Bacteria (Auto) NEGATIVE, Urine Squamous Epithelial Cells 0, Urine Mucus (Auto) SMALL, Urine Sperm (Auto) 01/04/19 07:14: Immature Granulocyte % (Auto) 0.4, Neutrophils (%) (Auto) 81.0H, Lymphocytes (%) (Auto) 15.5L, Monocytes (%) (Auto) 2.5, Eosinophils (%) (Auto) 0.4, Basophils (%) (Auto) 0.2, Immature Granulocyte # (Auto) 0.1H, Neutrophils # (Auto) 16.5H, Lymphocytes # (Auto) 3.2, Monocytes # (Auto) 0.5, Eosinophils # (Auto) 0.1, Basophils # (Auto) 0.1, Nucleated Red Blood Cells % (auto) 0.0, Platelet Estimate , Anion Gap 11, Glomerular Filtration Rate > 60.0, Calcium Level 9.0, Aspartate Amino Transf (AST/SGOT) 11, Alanine Aminotransferase (ALT/SGPT) 21, Alkaline Phosphatase 59, Total Bilirubin 1.0, Direct Bilirubin 0.2, Total Protein 7.6, Albumin 3.8, Albumin/Globulin Ratio 1.00, Thyroid Stimulating Hormone (TSH) 0.685, Salicylates Level < 1.7L, Urine Amphetamines Screen NEGATIVE, Urine Benzodiazepines Screen NEGATIVE, Urine Opiates Screen NEGATIVE, Urine Methadone Screen NEGATIVE, Acetaminophen Level < 2.0L, Urine Barbiturates Screen NEGATIVE, Urine Phencyclidine Screen NEGATIVE, Urine Cocaine Metabolite Screen POSITIVEH, Urine Cannabinoids Screen POSITIVEH, Ethyl Alcohol Level 0.008 CBC/BMP Laboratory Tests 01/04/19 07:14 Red Blood Count 5.46, Mean Corpuscular Volume 85.7, Mean Corpuscular Hemoglobin 28.9, Mean Corpuscular Hemoglobin Concent 33.8, Red Cell Distribution Width 13.4 Microbiology Microbiology 01/04/19 Blood Culture, Received Pending 01/04/19 Blood Culture, Received Pending 01/04/19 Group A Streptococcus Screen (RANDEE), Received Pending Assessment/Plan Hypertension -although he has not had blood pressure medication in months his blood pressure is controlled -monitor and start on medication if indicated Hyperlipidemia -Patient states he was on atorvastatin before -outpatient follow up when insurance issues are resolved for testing and initiation of therapy if indicated Obstructive sleep apnea -patient has not used in a long time and does not know his C-pap settings -will order C-pap with respiratory to adjust based on saturation Leukocytosis -etiology unclear at this time -could be reactive since he has no other signs of acute infectious process Hypokalemia -repleted -monitor to keep greater than 4 Polysubstance abuse/Depression with Suicidal ideation -management per primary team DVT prophylaxis -not indicated for patient since ambulatory Plan / VTE VTE Prophylaxis Ordered?: No VTE Exclusion Mechanical Proph: Low Risk for VTE AIME SILVAP Jan 04, 2019 15:27
[2019-01-04 18:18] VITALS: BP 106/62
[2019-01-05 06:39] VITALS: BP 92/54
[2019-01-05 06:51] LABS: HEMATOCRIT 48.9 % (42.0-52.0); HEMOGLOBIN 15.9 g/dl (13.5-17.5); MEAN CORPUSCULAR HEMOGLOBIN 28.7 pg (27.0-33.0); MEAN CORPUSCULAR HGB CONC 32.5 g/dl (32.0-36.5); MEAN CORPUSCULAR VOLUME 88.3 fl (80.0-96.0); PLATELET COUNT, AUTOMATED 347 10^3/uL (150-450); RED BLOOD COUNT 5.54 10^6/uL (4.30-6.10); WHITE BLOOD COUNT 9.2 10^3/uL (4.0-10.0)
[2019-01-05 07:22] LABS: ALBUMIN 3.3 GM/DL (3.2-5.2); ALT/SGPT 22 U/L (12-78); BILIRUBIN,TOTAL 0.2 MG/DL (0.2-1.0); BLOOD UREA NITROGEN 14 MG/DL (7-18); CALCIUM LEVEL 8.5 MG/DL (8.5-10.1); CARBON DIOXIDE LEVEL 21 MEQ/L (21-32); CHLORIDE LEVEL 116 MEQ/L (98-107); CREATININE FOR GFR 0.98 MG/DL (0.70-1.30); GLOMERULAR FILTRATION RATE > 60.0 (>60); GLUCOSE, FASTING 86 MG/DL (70-100); POTASSIUM SERUM 4.8 MEQ/L (3.5-5.1); SODIUM LEVEL 144 MEQ/L (136-145); TOTAL PROTEIN 7.3 GM/DL (6.4-8.2)
--- NOTE | 2019-01-05 09:40 | IPNPDOC ---
Subjective Date Seen The patient was seen on 01/05/19. Subjective Chief Complaint/HPI Patient is a 38-year-old male, past medical history significant for hypertension, hyperlipidemia, obstructive sleep apnea, noncompliant with medicat ions on CPAP use, presenting to the hospital on account of acute depression with suicidal ideation. Events since last encounter Has no complaints this morning, did not sleep with CPAP last night. Denies chest pain, shortness of breath, weakness, chills, nausea, abdominal pain Objective Physical Examination Other physical findings GENERAL: NAD SKIN : Warm, dry intact HEENT: Atraumatic, normocephalic, PERRL, moist mucous membrane CARDIOVASCULAR: Regular rate and rhythm, S1S2, no JVD, no edema, distal pulses + and palpable RESP: CTAB, no accessory muscle use noted ABDOMEN: BS+ non distended non tender MS: no joint deformities NEURO: Alert and oriented x 3, CN2-12 grossly intact PSYCH: no anxiety or agitation, appropriate mood and affect. Assessment /Plan Assessment Hypertension -controlled without antihypertensives -continue to monitor - start on medication if indicated Hyperlipidemia - on atorvastatin before -outpatient follow up when insurance issues are resolved for testing and initiation of therapy if indicated Obstructive sleep apnea -CPAP was ordered Leukocytosis -Resolved, findings discussed with him. Hypokalemia -repleted -Now normalized Polysubstance abuse/Depression with Suicidal ideation -management per primary team DVT prophylaxis -not indicated for patient since ambulatory Plan/VTE VTE Prophylaxis Ordered?: No VTE Exclusion Mechanical Proph: Low Risk for VTE VS, I&O, 24H, Fishbone Vital Signs/I&O Vital Signs Date Time Temp Pulse Resp B/P (MAP) Pulse Ox O2 Delivery O2 Flow Rate FiO2 01/05/19 08:14 98 01/05/19 08:06 Room Air 01/05/19 06:39 97.6 64 16 92/54 (67) Laboratory Data 24H LABS Laboratory Tests 2 01/05/19 06:27: Nucleated Red Blood Cells % (auto) 0.0, Anion Gap 7L, Glomerular Filtration Rate > 60.0, Blood Urea Nitrogen 14#, Creatinine 0.98, Sodium Level 144, Potassium Level 4.8#, Chloride Level 116H, Carbon Dioxide Level 21, Calcium Level 8.5, Aspartate Amino Transf (AST/SGOT) 11, Alanine Aminotransferase (ALT/SGPT) 22, Alkaline Phosphatase 62, Total Bilirubin 0.2#, Total Protein 7.3, Albumin 3.3, Albumin/Globulin Ratio 0.83L CBC/BMP Laboratory Tests 01/05/19 06:27 Red Blood Count 5.54, Mean Corpuscular Volume 88.3, Mean Corpuscular Hemoglobin 28.7, Mean Corpuscular Hemoglobin Concent 32.5, Red Cell Distribution Width 13.6, Calcium Level 8.5, Aspartate Amino Transf (AST/SGOT) 11, Alanine Aminotransferase (ALT/SGPT) 22, Alkaline Phosphatase 62, Total Bilirubin 0.2 #, Total Protein 7.3, Albumin 3.3 Microbiology Microbiology 01/04/19 Blood Culture, Received Pending 01/04/19 Blood Culture, Received Pending 01/04/19 Group A Streptococcus Screen (RANDEE) - Final, Complete AIME SILVA [facility] Jan 05, 2019 09:40
[2019-01-05] MEDS: NICOTINE 21MG/24HR 1 EA TRANSDERMAL TD SCH ×2 (10:05→11:59)
[2019-01-05] MEDS: LURASIDONE 20 MG TAB (LATUDA) PO SCH (11:58)
[2019-01-05 18:04] VITALS: BP 134/61
[2019-01-06 07:00] VITALS: BP 114/71
[2019-01-06] MEDS: NICOTINE 21MG/24HR 1 EA TRANSDERMAL TD SCH (07:48)
[2019-01-06] MEDS: LURASIDONE 20 MG TAB (LATUDA) PO SCH (07:48)
--- NOTE | 2019-01-06 08:34 | MHHPE ---
DATE OF ADMISSION: 01/04/2019 VITAL SIGNS: Blood pressure: 92/54, pulse 64, temperature 97.6. CHIEF COMPLAINT: Feels depressed. SUBJECTIVE: He is 38 years old. He is single. Has a 14-year-old daughter who he sees regularly, he lives on his own, his parents live nearby, seems them regularly, he has been in psychiatric here in the past, one admission here 3 years or so ago, the summary is reviewed, and subsequent to that was attending transitional living services, says stopped going possibly about a year or so ago, says ran out insurance, and his medications, does not remember what medicines he was on, but felt that they were helping him. Says for the better part of last year has been depressed, increasing so over the last few months, depressed most days, most of the time, says feels easily irritated as well, he expresses it, others notice it, has been feeling more tired, sleep has tended to fluctuate, at times goes up, appetite has gone down, says has lost 70 pounds in the last year or so, has had suicidal thoughts, increasing so, various thoughts of plans, denies any specific ones, has had increasing difficulties, concentration is well, and his functioning has deteriorated, he got worried and came to the hospital. Says he uses marijuana, takes it regularly, daily, toxicology was positive for that as well as cocaine, which he says he snorted a couple of days before coming in, says he only does that very occasionally. Says he used to use drugs heavily in the past, none, other than the ones mentioned above, for the last couple of years. Says his irritability tends to fluctuate, and that when [facility], was diagnosed with bipolar depression. He says has had periods where he gets irritated, that tends to last for a couple of days, possibly longer, though he is somewhat vague on this. He says he has had periods where he has not had much sleep for nights on end, coupled with excessive energy, increase in goal directed activities, says this lasted for several days in the past. Says also had periods of an elated mood, without using any drugs, says that has tended to last for several days, possibly a week, coupled with possible increase in goal directed activities, that has lead to periods where he is then noticed he comes down for elated mood relatively slowly. The patient says was doing relatively well about a couple of years ago. Review of the patient's previous admission here, 3 years ago, shows that at one point was on Suboxone, though he denies major difficulties with opiates in the past. Has used hydroxyzine, Prozac, Zoloft, Cymbalta in the past, BuSpar 20 mg three times a day as well. He also indicated had used the Latuda, with reasonable effect, but states they changed it, again vague on this. At times hears sounds which he cannot account for, this is not persistent. Says has nightmares, but did not go into details, they are related to past experiences, they are occasionally. PAST PSYCHIATRIC HISTORY: As indicated above. Has had outpatient care, one inpatient hospitalization, 2015, was being seen until he lost his insurance a year or so ago. No history of suicidal attempts. FAMILY PSYCHIATRIC HISTORY: Unknown. He denies any. MEDICAL HISTORY: Says he has been treated for high cholesterol, hypertension, but he is not on any medications at the moment, says has attended [facility] in the past. SUBSTANCE ABUSE HISTORY: Says used to use cocaine, snorted it, and has used marijuana, continues to do so, regularly. Denies any intravenous drug use. Says has been in rehabilitation on a couple of occasions, last one was [facility] a few years ago. SOCIAL HISTORY: Saycalin was born and raised in [place], that he had a good childhood, denies any history of abuse, says same to the states when he was in his 20s, stayed with an aunt and uncle, in the [facility], and then moved to the [facility] about 17 years ago. His parents live here as well, he sees them regularly. 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 Says has had various jobs, and for the last few months has been working at [employer], he says one of the managers tends to pick on him, the patient gets quite angry about it. Says his romantic relations do not tend to last for long, and his relationship with his daughter's mother was relatively short lived as well, he did not go into details. Says he sees his daughter regularly. Says gets along with his parents, and that his relationship with his father has improved. Has a sister locally as well, who he gets along with. He stays on his own at present. MENTAL STATUS EXAMINATION: A bit unkempt, he is cooperative, though at times possibly a bit guarded, he understands Kyrgyz and converses in it reasonably well, but there may be some difficulty there. He is coherent. No formal thought disorder. No agitation. No psychomotor retardation. Has suicidal thoughts, no firm plans. No fluctuation of consciousness. Does not appear to be internally preoccupied. No delusional ideations elicited. His cognition is grossly intact in that he is alert and oriented to time, place, and person. Can spell the word house forward and backwards, but could recall only one out of three objects after 5 minutes. Intellect appears to be average. Judgment and insight are fair. INVESTIGATIONS: Urine toxicology positive of cannabinoids and cocaine. Blood work repeated today shows chloride 116, potassium at 4.8, BUN is 14. Complete blood count showed a white cell count of 20.5 yesterday, but today it had come down to 9.2. ASSESSMENT: Bipolar disorder, current episode depressed, severe without psychotic features. Consider cannabis use disorder. Consider major depressive disorder, recurrent, severe. Loss of insurance and medical care. History of drug use. Enduring circumstances. The patient is clinically significantly depressed, has had periods of significant depression in the past as well, it is quite possible the use of cannabis may be driving it, but not solely responsible for that. He does describes periods indicative of hypomania, though this may require further elaboration, as well as collateral information, to help with solidifying the diagnosis. I would suggest empirically treating this as bipolar depression, before diagnostic clarification can be made, it is preferable using a mood stabilizer first. PLAN: He is admitted to the inpatient psychiatric unit, placed on relevant precautions, he will receive a medicine consult if indicated, and I would suggest obtaining collateral information from family, particularly to help clarify the diagnosis. Meanwhile, empirically, he is started Latuda at 20 mg daily, rationale for doing so, as well as the risks, benefits, drawbacks, and alternatives, are discussed, which he understands. Should there be further evidence that this is bipolar depression, not unipolar depression, I would suggest a mood stabilizer be titrated upwards. I had hesitated starting him on an antidepressant, as that may worsen bipolar depression. He is to encouraged to participate in activities in the unit. He will be seeing the assigned psychiatrist and the treatment team tomorrow. I anticipate a 5-7 day stay. The assessment took 60 minutes.
[2019-01-06] MEDS: DIVALPROEX 250 MG TAB PO SCH ×2 (16:30→20:18)
[2019-01-06 18:20] VITALS: BP 127/72
--- NOTE | 2019-01-06 19:48 | MHIPNPDOC ---
[facility] Progress Note Progress Note DATE OF SERVICE: 01/06/19 HISTORY: According to Dr. Olmedo's notes: "He is 38 years old. He is single. Has a 14-year-old daughter who he sees regularly, he lives on his own, his parents live nearby, seems them regularly, he has been in psychiatric here in the past, one admission here 3 years or so ago, the summary is reviewed, and subsequent to that was attending transitional living services, says stopped going possibly about a year or so ago, says ran out of insurance, and his medications, does not remember what medicines he was on, but felt that they were helping him. Says for the better part of last year has been depressed, increasing so over the last few months, depressed most days, most of the time, says feels easily irritated as well, he expresses it, others notice it, has been feeling more tired, sleep has tended to fluctuate, at times goes up, appetite has gone down, says has lost 70 pounds in the last year or so, has had suicidal thoughts, increasing so, various thoughts of plans, denies any specific ones, has had increasing difficulties, concentration is well, and his functioning has deteriorated, he got worried and came to the hospital'. VITAL SIGNS: See below. NEW TEST RESULTS: See below CURRENT MEDICATIONS: See below. MENTAL STATUS EXAMINATION: Patient is a 38-year old male, who is alert, mildly cooperative, irritable, disheveled, dressed in hospital clothes. Speech: Is normal volume, normal rate, rhythm and tone. Spontaneous and fluent. Language skills are fair. Thought processes including: linear, coherent. Thought content: focused on getting his medicons, overcoming his depression. He denied SI, denies HI, denies AV hallucinations. Description of abnormal or psychotic thoughts: denies AV hallucinations, denies thought delusions. Judgment: Poor Insight: Poor. Orientation: x 3. Recent and remote memory: intact. Attention span and concentration: good. Language: average. Fund of knowledge: poor. Mood: irritable, angry, anxious. Affect: congruent with mood, full, irritable. DIAGNOSES: 1. Bipolar disorder. 2. Cocaine use disorder. 3. Marijuana use disorder. ASSESSMENT:The patient was very irritable this morning, complaining almost about everything. We were able to speak and he was receptive when this display card writer told him that ocaine made him more depressed and irritable and he was using drugs. He tried to defend his addiction and he said he had been using drugs because they made him feel for some brief moments. Talked about the fact that he doesn't have money or insurance but told him he was spending that little money that he had in drugs instead of coming to the hospital and seeking help. He agreed to that, although it is hard for him to accept that he is not giving his health the priority it needs. He was able to understand that he has PRN medications, he says nobody told him over the weekend that he had them. He described a longstanding history of mood swings that go from anger, sadness, depression, anxiety and irritability. He has been using drugs for a long time and he justifies its use, although he admits that after its use he feels worse. He says he doesn't want to go to Rehab "because they don't work, they do nothing for me". this display card writer asks him what is he expecting from Rehab and he answers "I don't know". He seems to have trouble understanding that he has to work on himself instead of expecting Rehab programs to do everything for him. MANAGEMENT PLAN: Will increase Latuda to 40 mgs Po daily as of tomorrow and will start him on Depakote 250 mgs PO TID, to be lowly increased in 48 hours.. TIME SPENT: 20 minutes. Vital Signs Vital Signs Date Time Temp Pulse Resp B/P (MAP) Pulse Ox O2 Delivery O2 Flow Rate FiO2 01/06/19 18:20 98.0 78 18 127/72 (90) 01/05/19 08:14 98 01/05/19 08:06 Room Air Current Medications Current Medications Al Hydrox/Mg Hydrox/Simethicone (Mylanta) 30 ml Q4HP PRN PO HEARTBURN/INDIGESTION; Start 01/04/19 at 10:30 Divalproex Sodium (Depakote) 250 mg TID PO Last administered on 01/06/19at 16:30; Start 01/06/19 at 16:00 Home Med (Med Rec Complete!) ASDIRECTED XX ; Start 01/04/19 at 11:00; Stop 01/04/19 at 11:00; Status DC Lurasidone HCl (Latuda) 20 mg DAILY@08 PO Last administered on 01/06/19at 07:48; Start 01/05/19 at 08:00; Stop 01/06/19 at 13:16; Status DC Lurasidone HCl (Latuda) 40 mg DAILY@08 PO ; Start 01/07/19 at 08:00 Magnesium Hydroxide (Milk Of Magnesia) 30 ml DAILYPRN PRN PO CONSTIPATION; Start 01/04/19 at 10:30 Nicotine (Nicoderm Cq 21mg) 1 patch DAILY TD Last administered on 01/06/19at 07:48; Start 01/04/19 at 09:00 Olanzapine (ZyPREXA ZYDIS) 5 mg BIDP PRN PO AGITATION; Start 01/04/19 at 10:30 Trazodone HCl (Desyrel) 50 mg QHSP PRN PO INSOMNIA; Start 01/04/19 at 10:30 Allergies Coded Allergies: No Known Drug Allergies (Verified Allergy, Unknown, 01/04/19) DAGOBERTO QUICK MD Jan 06, 2019 19:48
[2019-01-06] MEDS: MAALOX 30 ML SUSP *UDC PO PRN (20:18)
[2019-01-06] MEDS: traZODone 50 MG TAB PO PRN (20:18)
[2019-01-07 06:34] VITALS: BP 108/59
[2019-01-07] MEDS: DIVALPROEX 250 MG TAB PO SCH ×3 (08:48→20:20)
[2019-01-07] MEDS: NICOTINE 21MG/24HR 1 EA TRANSDERMAL TD SCH (08:49)
[2019-01-07] MEDS: LURASIDONE 20 MG TAB (LATUDA) PO SCH (08:49)
--- NOTE | 2019-01-07 16:51 | MHIPNPDOC ---
[facility] [place] Progress Note Progress Note DATE OF SERVICE: 01/07/19 HISTORY: According to Dr. Olmedo's notes: "He is 38 years old. He is single. Has a 14-year-old daughter who he sees regularly, he lives on his own, his parents live nearby, seems them regularly, he has been in psychiatric here in the past, one admission here 3 years or so ago, the summary is reviewed, and subsequent to that was attending transitional living services, says stopped going possibly about a year or so ago, says ran out of insurance, and his medications, does not remember what medicines he was on, but felt that they were helping him. Says for the better part of last year has been depressed, increasing so over the last few months, depressed most days, most of the time, says feels easily irritated as well, he expresses it, others notice it, has been feeling more tired, sleep has tended to fluctuate, at times goes up, appetite has gone down, says has lost 70 pounds in the last year or so, has had suicidal thoughts, increasing so, various thoughts of plans, denies any specific ones, has had increasing difficulties, concentration is well, and his functioning has deteriorated, he got worried and came to the hospital'. VITAL SIGNS: See below. NEW TEST RESULTS: See below CURRENT MEDICATIONS: See below. MENTAL STATUS EXAMINATION: Patient is a 38-year old male, who is alert, mildly cooperative, irritable, disheveled, dressed in hospital clothes. Speech: Is normal volume, normal rate, rhythm and tone. Spontaneous and fluent. Language skills are fair. Thought processes including: linear, coherent. Thought content: focused on getting his medications, overcoming his depression. He denied SI, denies HI, denies AV hallucinations. Description of abnormal or psychotic thoughts: denies AV hallucinations, denies thought delusions. Judgment: improving Insight: improving Orientation: x 3. Recent and remote memory: intact. Attention span and concentration: good. Language: average. Fund of knowledge: poor. Mood: euthymic, not irritable, not anxious today . Affect: congruent with mood, full, appropriate, congruent. DIAGNOSES: 1. Bipolar disorder. 2. Cocaine use disorder. 3. Marijuana use disorder. ASSESSMENT:The patient was sleeping in his room and he apologized for being irritable yesterday and he says this is the way he has become previously when he is either manic or depressed. he said he had been postponing coming to the hospital because he thought his boss was not going to agree since they don't get along very well but finally he made the decision and he feels very thankful because last night he was able to fall asleep for the first time in many months and he says he feels calm and relaxed. I explained I have to titrate his Depakote and Latuda, that they can't be increased all at once and told him that I will order labs, Depakote levels and liver function tests for this Sunday. he is agreeable and he says that this time his health is going to come first. He explains that he has used marijuana for a long period of time, since he was 12 years old but he has not been a regular cocaine user, that is on and off, he says he doesn't really like it but he uses it because it gives him some energy. MANAGEMENT PLAN: Will increase Latuda to 80 mgs in 48 hours and will order Depakote levels in 48 hours too. TIME SPENT: 20 minutes. Vital Signs Vital Signs Date Time Temp Pulse Resp B/P (MAP) Pulse Ox O2 Delivery O2 Flow Rate FiO2 01/07/19 06:34 98.5 85 12 108/59 (75) 01/05/19 08:14 98 01/05/19 08:06 Room Air Current Medications Current Medications Al Hydrox/Mg Hydrox/Simethicone (Mylanta) 30 ml Q4HP PRN PO HEARTBURN/INDIGESTION Last administered on 01/06/19at 20:18; Start 01/04/19 at 10:30 Divalproex Sodium (Depakote) 250 mg TID PO Last administered on 01/07/19at 15:40; Start 01/06/19 at 16:00 Home Med (Med Rec Complete!) ASDIRECTED XX ; Start 01/04/19 at 11:00; Stop 01/04/19 at 11:00; Status DC Lurasidone HCl (Latuda) 20 mg DAILY@08 PO Last administered on 01/06/19at 07:48; Start 01/05/19 at 08:00; Stop 01/06/19 at 13:16; Status DC Lurasidone HCl (Latuda) 40 mg DAILY@08 PO Last administered on 01/07/19at 08:49; Start 01/07/19 at 08:00 Magnesium Hydroxide (Milk Of Magnesia) 30 ml DAILYPRN PRN PO CONSTIPATION; Start 01/04/19 at 10:30 Nicotine (Nicoderm Cq 21mg) 1 patch DAILY TD Last administered on 01/06/19at 07:48; Start 01/04/19 at 09:00 Olanzapine (ZyPREXA ZYDIS) 5 mg BIDP PRN PO AGITATION; Start 01/04/19 at 10:30 Trazodone HCl (Desyrel) 50 mg QHSP PRN PO INSOMNIA Last administered on 01/06/19at 20:18; Start 01/04/19 at 10:30 Allergies Coded Allergies: No Known Drug Allergies (Verified Allergy, Unknown, 01/04/19) DAGOBERTO QUICK MD Jan 07, 2019 16:51
[2019-01-07 18:39] VITALS: BP 114/56
[2019-01-07] MEDS: MAALOX 30 ML SUSP *UDC PO PRN (18:48)
[2019-01-07] MEDS: traZODone 50 MG TAB PO PRN (20:20)
[2019-01-08 06:35] VITALS: BP 90/54
[2019-01-08] MEDS: LURASIDONE 20 MG TAB (LATUDA) PO SCH (08:19)
[2019-01-08] MEDS: DIVALPROEX 250 MG TAB PO SCH ×3 (08:20→20:12)
[2019-01-08] MEDS: NICOTINE 21MG/24HR 1 EA TRANSDERMAL TD SCH (08:20)
--- NOTE | 2019-01-08 15:55 | MHIPNPDOC ---
[facility] Progress Note Progress Note DATE OF SERVICE: 01/08/19 HISTORY: According to Dr. Olmedo's notes: "He is 38 years old. He is single. Has a 14-year-old daughter who he sees regularly, he lives on his own, his parents live nearby, seems them regularly, he has been in psychiatric here in the past, one admission here 3 years or so ago, the summary is reviewed, and subsequent to that was attending transitional living services, says stopped going possibly about a year or so ago, says ran out of insurance, and his medications, does not remember what medicines he was on, but felt that they were helping him. Says for the better part of last year has been depressed, increasing so over the last few months, depressed most days, most of the time, says feels easily irritated as well, he expresses it, others notice it, has been feeling more tired, sleep has tended to fluctuate, at times goes up, appetite has gone down, says has lost 70 pounds in the last year or so, has had suicidal thoughts, increasing so, various thoughts of plans, denies any specific ones, has had increasing difficulties, concentration is well, and his functioning has deteriorated, he got worried and came to the hospital'. VITAL SIGNS: See below. NEW TEST RESULTS: See below CURRENT MEDICATIONS: See below. MENTAL STATUS EXAMINATION: Patient is a 38-year old male, who is alert, cooperative, dressed in hospital clothes. Speech: Is normal volume, normal rate, rhythm and tone. Spontaneous and fluent. Language skills are fair. Thought processes including: linear, coherent. Thought content: focused on getting his medications, overcoming his depression. He denied SI, denies HI, denies AV hallucinations. Description of abnormal or psychotic thoughts: denies AV hallucinations, denies thought delusions. Judgment: improving Insight: improving Orientation: x 3. Recent and remote memory: intact. Attention span and concentration: good. Language: average. Fund of knowledge: poor. Mood: euthymic, not irritable, not anxious today . Affect: congruent with mood, full, appropriate, congruent. DIAGNOSES: 1. Bipolar disorder. 2. Cocaine use disorder. 3. Marijuana use disorder. ASSESSMENT: The patient says he feels calm in his mind, he can read a book, he feels relaxed. He says that he has been approved for Medicaid and that he feels peace of mind, to know he can go the doctor and have his meds. He wants to go and enroll in [employer] because he knows that his family has a predisposition for hyperlipidemia and heart disease. will order Depakote levels, lipid profile and liver profile for tomorrow in am MANAGEMENT PLAN: Will increase Latuda to 60 mgs in 48 hours and will order Depakote levels in 24 hours too. TIME SPENT: 20 minutes. Vital Signs Vital Signs Date Time Temp Pulse Resp B/P (MAP) Pulse Ox O2 Delivery O2 Flow Rate FiO2 01/08/19 06:35 97.6 64 12 90/54 (66) 01/05/19 08:14 98 01/05/19 08:06 Room Air Current Medications Current Medications Al Hydrox/Mg Hydrox/Simethicone (Mylanta) 30 ml Q4HP PRN PO HEARTBURN/INDIGESTION Last administered on 01/07/19at 18:48; Start 01/04/19 at 10:30 Divalproex Sodium (Depakote) 250 mg TID PO Last administered on 01/08/19at 08:20; Start 01/06/19 at 16:00 Home Med (Med Rec Complete!) ASDIRECTED XX ; Start 01/04/19 at 11:00; Stop 01/04/19 at 11:00; Status DC Lurasidone HCl (Latuda) 20 mg DAILY@08 PO Last administered on 01/06/19at 07:48; Start 01/05/19 at 08:00; Stop 01/06/19 at 13:16; Status DC Lurasidone HCl (Latuda) 40 mg DAILY@08 PO Last administered on 01/08/19at 08:19; Start 01/07/19 at 08:00; Stop 01/08/19 at 15:47; Status DC Lurasidone HCl (Latuda) 60 mg DAILY@08 PO ; Start 01/09/19 at 08:00; Status UNV Magnesium Hydroxide (Milk Of Magnesia) 30 ml DAILYPRN PRN PO CONSTIPATION; Start 01/04/19 at 10:30 Nicotine (Nicoderm Cq 21mg) 1 patch DAILY TD Last administered on 01/06/19at 07:48; Start 01/04/19 at 09:00 Olanzapine (ZyPREXA ZYDIS) 5 mg BIDP PRN PO AGITATION; Start 01/04/19 at 10:30 Trazodone HCl (Desyrel) 50 mg QHSP PRN PO INSOMNIA Last administered on 01/07/19at 20:20; Start 01/04/19 at 10:30 Allergies Coded Allergies: No Known Drug Allergies (Verified Allergy, Unknown, 01/04/19) DAGOBERTO QUICK MD Jan 08, 2019 15:55
[2019-01-08 18:00] VITALS: BP 110/66
[2019-01-08] MEDS: traZODone 50 MG TAB PO PRN (20:12)
[2019-01-09 06:36] LABS: ALBUMIN 3.1 GM/DL (3.2-5.2); ALT/SGPT 24 U/L (12-78); BILIRUBIN,DIRECT < 0.1 MG/DL (0.0-0.2); BILIRUBIN,TOTAL 0.3 MG/DL (0.2-1.0); CHOLESTEROL LEVEL 169 MG/DL (<200); CHOLESTEROL RISK RATIO 4.447 (<5); HDL CHOLESTEROL 38 MG/DL (>40); LDL CHOLESTEROL 111 MG/DL (<100); NON-HDL-C 131 MG/DL; TOTAL PROTEIN 6.5 GM/DL (6.4-8.2); TRIGLYCERIDES LEVEL 98 MG/DL (<150); VALPROIC ACID (DEPAKOTE) 50.3 UG/ML (50.0-100.0)
[2019-01-09 06:44] VITALS: BP 129/66
[2019-01-09] MEDS: DIVALPROEX 250 MG TAB PO SCH (08:50)
[2019-01-09] MEDS: NICOTINE 21MG/24HR 1 EA TRANSDERMAL TD SCH (08:50)
[2019-01-09] MEDS: LURASIDONE 20 MG TAB (LATUDA) PO SCH (08:50)
[2019-01-09 18:00] VITALS: BP 111/68
[2019-01-09] MEDS: MAALOX 30 ML SUSP *UDC PO PRN (20:09)
[2019-01-09] MEDS: traZODone 50 MG TAB PO PRN (20:09)
--- NOTE | 2019-01-09 20:37 | MHIPNPDOC ---
[facility] Progress Note Progress Note DATE OF SERVICE: 01/09/19 HISTORY: According to Dr. Olmedo's notes: "He is 38 years old. He is single. Has a 14-year-old daughter who he sees regularly, he lives on his own, his parents live nearby, seems them regularly, he has been in psychiatric here in the past, one admission here 3 years or so ago, the summary is reviewed, and subsequent to that was attending transitional living services, says stopped going possibly about a year or so ago, says ran out of insurance, and his medications, does not remember what medicines he was on, but felt that they were helping him. Says for the better part of last year has been depressed, increasing so over the last few months, depressed most days, most of the time, says feels easily irritated as well, he expresses it, others notice it, has been feeling more tired, sleep has tended to fluctuate, at times goes up, appetite has gone down, says has lost 70 pounds in the last year or so, has had suicidal thoughts, increasing so, various thoughts of plans, denies any specific ones, has had increasing difficulties, concentration is well, and his functioning has deteriorated, he got worried and came to the hospital'. VITAL SIGNS: See below. NEW TEST RESULTS: Aspartate Amino Transf (AST/SGOT) 5L, Alanine Aminotransferase (ALT/SGPT) 24, Alkaline Phosphatase 50, Total Bilirubin 0.3, Direct Bilirubin < 0.1, Total Protein 6.5, Albumin 3.1L, Albumin/Globulin Ratio 0.91L, Triglycerides Level 98, Total Cholesterol 169, LDL Cholesterol 111H, Non-HDL Cholesterol (LDL + VLDL) 131, Total HDL Cholesterol 38L, Cholesterol/HDL Ratio 4.447, Valproic Acid (Depakene) Level 50.3 CURRENT MEDICATIONS: See below. MENTAL STATUS EXAMINATION: Patient is a 38-year old male, who is alert, cooperative, dressed in hospital clothes. Speech: Is normal volume, normal rate, rhythm and tone. Spontaneous and fluent. Language skills are fair. Thought processes including: linear, coherent. Thought content: focused on getting his medications, overcoming his depression. He denied SI, denies HI, denies AV hallucinations. Description of abnormal or psychotic thoughts: denies AV hallucinations, denies thought delusions. Judgment: improving Insight: improving Orientation: x 3. Recent and remote memory: intact. Attention span and concentration: good. Language: average. Fund of knowledge: poor. Mood: euthymic, not irritable, not anxious today . Affect: congruent with mood, full, appropriate, congruent. DIAGNOSES: 1. Bipolar disorder. 2. Cocaine use disorder. 3. Marijuana use disorder. ASSESSMENT: The patient's Depakote level was 50.3, so, the dose was increase to 1,000 mgs but he prefers to take it at night. He will continue with Latuda 60 mgs PO daily. He received advise to abstain from liquor, to excercise, stick to healthy diet because his lipid profile shows that his LDL is 111 and his HDL is 38 and psychiatric medications increase the risk of having liver/heart problems if he doesn't take care of his diet. MANAGEMENT PLAN: Will discharge tomorrow TIME SPENT: 20 minutes. Vital Signs Vital Signs Date Time Temp Pulse Resp B/P (MAP) Pulse Ox O2 Delivery O2 Flow Rate FiO2 01/09/19 18:00 97.8 71 18 111/68 (82) 01/05/19 08:14 98 01/05/19 08:06 Room Air Laboratory Data 24H Labs Laboratory Tests 2 01/09/19 05:56: Aspartate Amino Transf (AST/SGOT) 5L, Alanine Aminotransferase (ALT/SGPT) 24, Alkaline Phosphatase 50, Total Bilirubin 0.3, Direct Bilirubin < 0.1, Total Protein 6.5, Albumin 3.1L, Albumin/Globulin Ratio 0.91L, Triglycerides Level 98, Total Cholesterol 169, LDL Cholesterol 111H, Non-HDL Cholesterol (LDL + VLDL) 131, Total HDL Cholesterol 38L, Cholesterol/HDL Ratio 4.447, Valproic Acid (Dep akene) Level 50.3 Current Medications Current Medications Al Hydrox/Mg Hydrox/Simethicone (Mylanta) 30 ml Q4HP PRN PO HEARTBURN/INDIGESTION Last administered on 01/09/19at 20:09; Start 01/04/19 at 10:30 Divalproex Sodium (Depakote) 250 mg TID PO Last administered on 01/09/19at 08:50; Start 01/06/19 at 16:00; Stop 01/09/19 at 14:17; Status DC Divalproex Sodium (Depakote) 1,000 mg QHS PO Last administered on 01/09/19at 20:09; Start 01/09/19 at 21:00 Home Med (Med Rec Complete!) ASDIRECTED XX ; Start 01/04/19 at 11:00; Stop 01/04/19 at 11:00; Status DC Lurasidone HCl (Latuda) 20 mg DAILY@08 PO Last administered on 01/06/19at 07:48; Start 01/05/19 at 08:00; Stop 01/06/19 at 13:16; Status DC Lurasidone HCl (Latuda) 40 mg DAILY@08 PO Last administered on 01/08/19at 08:19; Start 01/07/19 at 08:00; Stop 01/08/19 at 15:47; Status DC Lurasidone HCl (Latuda) 60 mg DAILY@08 PO Last administered on 01/09/19at 08:50; Start 01/09/19 at 08:00 Magnesium Hydroxide (Milk Of Magnesia) 30 ml DAILYPRN PRN PO CONSTIPATION; Start 01/04/19 at 10:30 Nicotine (Nicoderm Cq 21mg) 1 patch DAILY TD Last administered on 01/06/19at 07:4 8; Start 01/04/19 at 09:00 Olanzapine (ZyPREXA ZYDIS) 5 mg BIDP PRN PO AGITATION; Start 01/04/19 at 10:30 Trazodone HCl (Desyrel) 50 mg QHSP PRN PO INSOMNIA Last administered on 01/09/19at 20:09; Start 01/04/19 at 10:30 Allergies Coded Allergies: No Known Drug Allergies (Verified Allergy, Unknown, 01/04/19) DAGOBERTO QUICK MD Jan 09, 2019 20:37
[2019-01-09] MEDS ORDERED: DIVALPROEX 250 MG TAB PO SCH (21:00)
[2019-01-10 06:30] VITALS: BP 110/63
[2019-01-10] MEDS: LURASIDONE 20 MG TAB (LATUDA) PO SCH (07:49)
[2019-01-10] MEDS: NICOTINE 21MG/24HR 1 EA TRANSDERMAL TD SCH (07:49)
[2019-01-10] MEDS ORDERED: TRAZ-252 PO (10:07)
[2019-01-10] MEDS ORDERED: LATU20TA PO (10:07)
[2019-01-10] MEDS ORDERED: NICO21PAT TD (10:07)
[2019-01-10] MEDS ORDERED: DEPA250T32 PO (10:07)
--- NOTE | 2019-02-01 23:22 | MHDSPDOC ---
[facility] Discharge Summary Discharge Summary DATE OF ADMISSION: Jan 04, 2019 at 10:19 DATE OF DISCHARGE: Jan 10, 2019 at 11:17 DISCHARGE DIAGNOSES: 1. Bipolar disorder. 2. Cocaine use disorder. 3. Marijuana use disorder. REASON FOR ADMISSION: According to Dr. Olmedo's notes: "He is 38 years old. He is single. Has a 14-year-old daughter who he sees regularly, he lives on his own, his parents live nearby, seems them regularly, he has been in psychiatric here in the past, one admission here 3 years or so ago, the summary is reviewed, and subsequent to that was attending transitional living services, says stopped going possibly about a year or so ago, says ran out of insurance, and his medications, does not remember what medicines he was on, but felt that they were helping him. Says for the better part of last year has been depressed, increasing so over the last few months, depressed most days, most of the time, says feels easily irritated as well, he expresses it, others notice it, has been feeling more tired, sleep has tended to fluctuate, at times goes up, appetite has gone down, says has lost 70 pounds in the last year or so, has had suicidal thoughts, increasing so, various thoughts of plans, denies any specific ones, has had increasing difficulties, concentration is well, and his functioning has deteriorated, he got worried and came to the hospital'. CONSULTANTS INVOLVED: None TREATMENT AND PROGRESS ON THE UNIT : upon initial evalation the patient was irritable, angry and demanding but once he started taking his medications, his mood and affect improved, he even apologized for his presentation and he explained this is what has caused him problems before because he becomes very angry and lashes out at people. He says tht he works at [employer] and he has had several problems with his boss but he has been able to maintain his job. He doesn't like the feeling (irritable/anry). He says there are periods of time when he is back to normal but it doesn't last long. He said he had been on medications but had not been taking them because he had ran out of insurance. He was re started on Depakote and the dose was progressively increased. The initial Depakote levels were 50.3, so, the medication dose was increased. He also was stated on Latuda, having a good response to this medication too. Through staff members, he was able to apply for Medicaid and he was apporoved. He was very relieved because he knew that he could get medications now. He received education about how to keep a healthy diet and excersiSe to prevent weight gain from Depakote. His LDL cholesterol was 111 and his HDL cholesterol was 38, so, he was encouraged to watch his diet. THESE WERE HIS LAB RESULTS: NEW TEST RESULTS: Aspartate Amino Transf (AST/SGOT) 5L, Alanine Aminotransferase (ALT/SGPT) 24, Alkaline Phosphatase 50, Total Bilirubin 0.3, Direct Bilirubin < 0.1, Total Protein 6.5, Albumin 3.1L, Albumin/Globulin Ratio 0.91L, Triglycerides Level 98, Total Cholesterol 169, LDL Cholesterol 111H, Non-HDL Cholesterol (LDL + VLDL) 131, Total HDL Cholesterol 38L, Cholesterol/HDL Ratio 4.447, Valproic Acid (Depakene) Level 50.3 HOSPITAL COURSE: As above DISCHARGE ASSESSMENT: The patient was not suicidal, not homicidal, not psychotic at the time of his discharge. He was goal orientated, he wanted to go back to work, he wanted to f/u with his appointments and keep on taking his medications. He did not report neither we observed him having medications negative/adverse effects MENTAL STATUS EXAMINATION ON DISCHARGE: Patient is a 38-year old male, who is alert, cooperative, dressed in hospital clothes. Speech: Is normal volume, normal rate, rhythm and tone. Spontaneous and fluent. Language skills are fair. Thought processes including: linear, coherent. Thought content: focused on getting his medications, overcoming his depression. He denied SI, denies HI, denies AV hallucinations. Description of abnormal or psychotic thoughts: denies AV hallucinations, denies thought delusions. Judgment: improving Insight: improving Orientation: x 3. Recent and remote memory: intact. Attention span and concentration: good. Language: average. Fund of knowledge: poor. Mood: euthymic, not irritable, not anxious today . Affect: congruent with mood, full, appropriate, congruent. DIAGNOSES: 1. Bipolar disorder. 2. Cocaine use disorder. 3. Marijuana use disorder. MEDICATIONS ON DISCHARGE: Scheduled Divalproex Sodium (Depakote) 250 Mg Tablet., 1,000 MG PO QHS for MOOD, #28 Lurasidone Hydrochloride (Latuda) 20 Mg Tablet, 60 MG PO DAILY@08 for MOOD, #21 Nicotine (Nicotine Patch) 21 Mg Patch.td24, 1 PATCH TD DAILY for NICOTINE CRAVINGS, #7 Scheduled PRN Trazodone HCl (Trazodone HCl) 50 Mg Tablet, 50 MG PO QHSP PRN for INSOMNIA, #7 PLAN/FOLLOWUP ARRANGEMENTS: Follow Up Care Education Label * Medical * Medical Follow Up [facility] * Established With This Provider Yes * Therapist KURTIS CLARKE * Date Jan 22, 2019 * Time 13:00 * Address of Clinic or Practice [address] [place] [address] * * Additional information Medicaid Client ID: [id number] Pharmacy Follow Up Care Education Label * Mental Health Appt 1 * Mental Health [facility] * Established With This Provider Yes * Therapist Ambar Leon * Date Jan 16, 2019 * Time 09:00 * Address of Clinic or Practice [address] [place] [address] * Follow Up Care Education Label * Chemical Dependency Appt1 * Chemical Dependency [facility] * Established With This Provider No * Address of Clinic or Practice [address] [place] [address] * * Additional information Walk-in hours Sunday-Sunday 7:30-12:30. The amount of time spent in the coordination of care for this patient was approximately 30 minutes. Medications Scheduled Divalproex Sodium (Depakote) 250 Mg Tablet.dr, 1,000 MG PO QHS for MOOD, #28 Lurasidone Hydrochloride (Latuda) 20 Mg Tablet, 60 MG PO DAILY@08 for MOOD, #21 Nicotine (Nicotine Patch) 21 Mg Patch.td24, 1 PATCH TD DAILY for NICOTINE CRAVINGS, #7 Scheduled PRN Trazodone HCl (Trazodone HCl) 50 Mg Tablet, 50 MG PO QHSP PRN for INSOMNIA, #7 Allergies Coded Allergies: No Known Drug Allergies (Verified Allergy, Unknown, 01/04/19) DAGOBERTO QUICK MD Feb 01, 2019 23:04
== END 2019-01-10 11:17 | disposition home or self-care (01) | DRG 753 ==
LOC: M ED 06:45 → M ED INP 10:19 → M PSY 11:23
PROVIDERS: ADMIT Psychiatry & Neurology Psychiatry; ATTEND Psychiatry & Neurology Psychiatry
DX: F31.9 Bipolar disorder, unspecified (principal); F12.10 Cannabis abuse, uncomplicated; F14.10 Cocaine abuse, uncomplicated; I10 Essential (primary) hypertension; G47.33 Obstructive sleep apnea (adult) (pediatric); E78.5 Hyperlipidemia, unspecified; E87.6 Hypokalemia; D72.829 Elevated white blood cell count, unspecified; Z91.120 Patient's intentional underdosing of medication regimen due to financial hardship

== ENCOUNTER → 2019-02-03 | Outpatient (REF) | payer OTHER, MEDICAID ==
[~2019-02-03] MED LIST changes: +DEPA250T32 PO; +LATU20TA PO; +NICO21PAT TD; +TRAZ-252 PO
[2019-02-03 13:43] LABS: BASO # 0.1 10^3/uL (0.0-0.2); BASO % 0.3 % (0.0-1.0); EOS # 0.1 10^3/uL (0.0-0.50); EOS % 0.7 % (0.0-3.0); HEMATOCRIT 47.4 % (42.0-52.0); HEMOGLOBIN 15.5 g/dl (13.5-17.5); LYMPH # 3.1 10^3/uL (1.5-4.5); LYMPH % 20.2 % (24.0-44.0); MEAN CORPUSCULAR HEMOGLOBIN 27.6 pg (27.0-33.0); MEAN CORPUSCULAR HGB CONC 32.7 g/dl (32.0-36.5); MEAN CORPUSCULAR VOLUME 84.5 fl (80.0-96.0); MONO # 0.8 10^3/uL (0.0-0.8); MONO % 5.1 % (0.0-5.0); NEUTROPHILS # 11.3 10^3/uL (1.8-7.7); NEUTROPHILS % 73.3 % (36.0-66.0); PLATELET COUNT, AUTOMATED 387 10^3/uL (150-450); RED BLOOD COUNT 5.61 10^6/uL (4.30-6.10); WHITE BLOOD COUNT 15.5 10^3/uL (4.0-10.0)
[2019-02-03 13:53] LABS: ALBUMIN 3.8 GM/DL (3.2-5.2); ALT/SGPT 21 U/L (12-78); BILIRUBIN,TOTAL 0.9 MG/DL (0.2-1.0); BLOOD UREA NITROGEN 6 MG/DL (7-18); CALCIUM LEVEL 9.3 MG/DL (8.5-10.1); CARBON DIOXIDE LEVEL 25 MEQ/L (21-32); CHLORIDE LEVEL 108 MEQ/L (98-107); CHOLESTEROL LEVEL 171 MG/DL (<200); CREATININE FOR GFR 0.93 MG/DL (0.70-1.30); FREE T4 1.24 NG/DL (0.76-1.46); GLOMERULAR FILTRATION RATE > 60.0 (>60); GLUCOSE, FASTING 91 MG/DL (70-100); HDL CHOLESTEROL 38 MG/DL (>40); LDL CHOLESTEROL 116 MG/DL (<100); NON-HDL-C 133 MG/DL; POTASSIUM SERUM 3.9 MEQ/L (3.5-5.1); SODIUM LEVEL 140 MEQ/L (136-145); THYROID STIMULATING HORMONE 0.877 uIU/ML (0.358-3.740); TOTAL PROTEIN 7.5 GM/DL (6.4-8.2); TRIGLYCERIDES LEVEL 83 MG/DL (<150)
[2019-02-03 14:18] LABS: HEMOGLOBIN A1c 5.6 %
== END ==
LOC: M LAB REF 13:13
PROVIDERS: ATTEND Nurse Practitioner Family
DX: I10 Essential (primary) hypertension (principal); R73.9 Hyperglycemia, unspecified

== ENCOUNTER → 2019-03-13 | Outpatient (REF) | payer OTHER, MEDICAID ==
[~2019-03-13] MED LIST changes: -OMEP20CA3 PO; +OMEP20CA4 PO; +ZETI10TA16 PO; -ZETI10TA30 PO
== END ==
LOC: M LAB REF 17:22
PROVIDERS: ATTEND Physician Assistant
DX: J02.9 Acute pharyngitis, unspecified (principal)

== ENCOUNTER 2020-04-28 06:57 | Emergency (ER) | payer MEDICAID, OTHER ==
[~2020-04-28] VITALS: Ht 170.2 cm; Wt 84.1 kg
[~2020-04-28 06:57] MED LIST changes: -ACET120S PO; +ACET125EL PO; +CYAN100T4 PO; -CYAN100T5 PO; +OMEP1CAP73 PO; -OMEP20CA4 PO; -OMEP40CA2 PO; +OMEP40CA97 PO; -TRAZ-163 PO; +TRAZ-257 PO
[2020-04-28] MEDS ORDERED: OXCA150T21 (07:09)
[2020-04-28] MEDS ORDERED: OXCA300T14 (07:09)
[2020-04-28] MEDS ORDERED: TRIL150T (07:09)
[2020-04-28] MEDS ORDERED: ESCI10TA2 (07:09)
[2020-04-28] MEDS ORDERED: TRIL1TAB (07:09)
[2020-04-28] MEDS ORDERED: ACETAMINOPHEN 500 MG TAB PO ONE (07:30)
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
[2020-04-28 08:22] VITALS: BP 117/81
== END 2020-04-28 08:24 | disposition home or self-care (01) ==
LOC: M ED 06:57
DX: S43.101A Unspecified dislocation of right acromioclavicular joint, initial encounter (principal); S40.211A Abrasion of right shoulder, initial encounter; S00.211A Abrasion of right eyelid and periocular area, initial encounter; M79.605 Pain in left leg; V18.0XXA Pedal cycle driver injured in noncollision transport accident in nontraffic accident, initial encounter; Y92.410 Unspecified street and highway as the place of occurrence of the external cause; I10 Essential (primary) hypertension; G47.30 Sleep apnea, unspecified; K21.9 Gastro-esophageal reflux disease without esophagitis; F19.10 Other psychoactive substance abuse, uncomplicated; F41.9 Anxiety disorder, unspecified; F33.9 Major depressive disorder, recurrent, unspecified; F17.200 Nicotine dependence, unspecified, uncomplicated; Z79.899 Other long term (current) drug therapy

== ENCOUNTER → 2020-06-09 | Outpatient (REF) | payer MEDICAID ==
[~2020-06-09] MED LIST changes: +ESCI10TA2; +OXCA150T21; +OXCA300T14; +TRIL150T; +TRIL1TAB
[2020-06-09 12:36] LABS: BASO # 0.1 10^3/uL (0.0-0.2); BASO % 0.6 % (0.0-1.0); EOS # 0.3 10^3/uL (0.0-0.5); EOS % 3.8 % (0.0-3.0); HEMOGLOBIN 14.2 g/dl (13.5-17.5); LYMPH # 2.9 10^3/uL (1.5-5.0); LYMPH % 35.3 % (24.0-44.0); MEAN CORPUSCULAR HEMOGLOBIN 27.7 pg (27.0-33.0); MEAN CORPUSCULAR HGB CONC 31.6 g/dl (32.0-36.5); MEAN CORPUSCULAR VOLUME 87.7 fl (80.0-96.0); MONO # 0.6 10^3/uL (0.0-0.8); MONO % 7.5 % (0.0-5.0); NEUTROPHILS # 4.3 10^3/uL (1.5-8.5); NEUTROPHILS % 52.6 % (36.0-66.0); PLATELET COUNT, AUTOMATED 357 10^3/uL (150-450); RED BLOOD COUNT 5.13 10^6/uL (4.30-6.10); WHITE BLOOD COUNT 8.2 10^3/uL (4.0-10.0)
[2020-06-09 13:43] LABS: CHOLESTEROL RISK RATIO 4.085 (<5); FREE T4 0.78 NG/DL (0.76-1.46); PROSTATIC SPECIFIC AG MONITOR 0.35 NG/ML (< 4.00); THYROID STIMULATING HORMONE 1.25 uIU/ML (0.358-3.740); TOTAL 25(OH) VITAMIN D 24.8 NG/ML (30.0-100.0)
[2020-06-09 20:29] LABS: HEMOGLOBIN A1c 5.4 %
== END ==
LOC: M LAB REF 11:38
PROVIDERS: ATTEND Nurse Practitioner Family
DX: Z00.00 Encounter for general adult medical examination without abnormal findings (principal); R73.9 Hyperglycemia, unspecified; I10 Essential (primary) hypertension; E78.5 Hyperlipidemia, unspecified

== ENCOUNTER → 2021-05-12 | Outpatient (REF) | payer OTHER ==
[~2021-05-12] MED LIST changes: +ESCI10TA16; -ESCI10TA2; +OMEP40CA4 PO; -OMEP40CA97 PO
== END ==
LOC: M LAB REF 12:15
PROVIDERS: ATTEND Physician Assistant Medical
DX: R52 Pain, unspecified (principal)

== ENCOUNTER → 2021-05-13 | Outpatient (CLI) | payer OTHER ==
[2021-05-13 11:38] LABS: BASO # 0.1 10^3/uL (0.0-0.2); BASO % 0.6 % (0.0-1.0); EOS # 0.3 10^3/uL (0.0-0.5); EOS % 3.4 % (0.0-3.0); HEMATOCRIT 43.6 % (42.0-52.0); HEMOGLOBIN 14.5 g/dl (13.5-17.5); LYMPH # 2.9 10^3/uL (1.5-5.0); LYMPH % 35.2 % (24.0-44.0); MEAN CORPUSCULAR HEMOGLOBIN 28.7 pg (27.0-33.0); MEAN CORPUSCULAR HGB CONC 33.3 g/dl (32.0-36.5); MEAN CORPUSCULAR VOLUME 86.2 fl (80.0-96.0); MONO # 0.6 10^3/uL (0.0-0.8); MONO % 6.6 % (2.0-8.0); NEUTROPHILS # 4.5 10^3/uL (1.5-8.5); PLATELET COUNT, AUTOMATED 382 10^3/uL (150-450); RED BLOOD COUNT 5.06 10^6/uL (4.30-6.10); WHITE BLOOD COUNT 8.3 10^3/uL (4.0-10.0)
[2021-05-13 12:50] LABS: ALBUMIN 3.8 GM/DL (3.2-5.2); ALT/SGPT 40 U/L (12-78); BILIRUBIN,DIRECT < 0.1 MG/DL (0.0-0.2); BILIRUBIN,TOTAL 0.2 MG/DL (0.2-1.0); BLOOD UREA NITROGEN 9 MG/DL (7-18); CALCIUM LEVEL 8.7 MG/DL (8.5-10.1); CARBON DIOXIDE LEVEL 25 MEQ/L (21-32); CHLORIDE LEVEL 107 MEQ/L (98-107); CHOLESTEROL LEVEL 225 MG/DL (<200); CHOLESTEROL RISK RATIO 6.617 (<5); GLOMERULAR FILTRATION RATE > 60.0 (>60); GLUCOSE, FASTING 108 MG/DL (70-100); HDL CHOLESTEROL 34 MG/DL (>40); NON-HDL-C 191 MG/DL; PHOSPHORUS LEVEL 2.9 MG/DL (2.5-4.9); POTASSIUM SERUM 4.2 MEQ/L (3.5-5.1); SODIUM LEVEL 139 MEQ/L (136-145); TOTAL 25(OH) VITAMIN D 24.5 NG/ML (30.0-100.0); TOTAL PROTEIN 7.4 GM/DL (6.4-8.2); TRIGLYCERIDES LEVEL 418 MG/DL (<150)
[2021-05-13 20:27] LABS: HEMOGLOBIN A1c 5.6 %
--- NOTE | 2021-05-16 18:50 | ECGEPIP ---
[facility] Test Date: 2021-05-13 Pat Name: ANGEL CARUSO Department: Room: - Gender: Male [employer] Lab Technician: KOLBY : 1980 Requested By: Nimisha FERREIRA Order Number: [id number] Reading MD: Marco Antonio Cedillo Measurements Intervals [place] Rate: 83 P: 71 MA: 142 QRS: 22 QRSD: 90 T: 50 QT: 378 QTc: 444 Interpretive Statements Normal sinus rhythm Baseline artifact similar to tracing done 04-04-16 Electronically Signed on 05-16-2021 18:50:19 EDT by Marco Antonio Cedillo
== END ==
LOC: M LAB 08:52
PROVIDERS: ATTEND Registered Nurse
DX: F31.9 Bipolar disorder, unspecified (principal)

== ENCOUNTER → 2021-09-08 | Outpatient (CLI) | payer OTHER ==
[2021-09-08 09:44] LABS: BASO # 0.1 10^3/uL (0.0-0.2); BASO % 0.6 % (0.0-1.0); EOS # 0.2 10^3/uL (0.0-0.5); EOS % 2.5 % (0.0-3.0); HEMATOCRIT 46.1 % (42.0-52.0); HEMOGLOBIN 14.9 g/dl (13.5-17.5); LYMPH # 3.1 10^3/uL (1.5-5.0); LYMPH % 38.9 % (24.0-44.0); MEAN CORPUSCULAR HEMOGLOBIN 27.9 pg (27.0-33.0); MEAN CORPUSCULAR HGB CONC 32.3 g/dl (32.0-36.5); MEAN CORPUSCULAR VOLUME 86.2 fl (80.0-96.0); MONO # 0.6 10^3/uL (0.0-0.8); MONO % 7.3 % (2.0-8.0); NEUTROPHILS % 50.4 % (36.0-66.0); PLATELET COUNT, AUTOMATED 388 10^3/uL (150-450); RED BLOOD COUNT 5.35 10^6/uL (4.30-6.10); WHITE BLOOD COUNT 7.9 10^3/uL (4.0-10.0)
[2021-09-08 11:27] LABS: HEMOGLOBIN A1c 5.7 %
[2021-09-08 13:18] LABS: ALBUMIN 3.7 GM/DL (3.2-5.2); ALT/SGPT 47 U/L (12-78); BILIRUBIN,DIRECT < 0.1 MG/DL (0.0-0.2); BILIRUBIN,TOTAL 0.1 MG/DL (0.2-1.0); BLOOD UREA NITROGEN 11 MG/DL (7-18); CALCIUM LEVEL 8.8 MG/DL (8.5-10.1); CARBON DIOXIDE LEVEL 27 MEQ/L (21-32); CHLORIDE LEVEL 108 MEQ/L (98-107); CHOLESTEROL LEVEL 215 MG/DL (<200); CHOLESTEROL RISK RATIO 5.512 (<5); CREATININE FOR GFR 0.82 MG/DL (0.70-1.30); GLOMERULAR FILTRATION RATE > 60.0 (>60); GLUCOSE, FASTING 105 MG/DL (70-100); GLUCOSE,RANDOM 105 MG/DL (LESS THAN 200); HDL CHOLESTEROL 39 MG/DL (>40); LDL CHOLESTEROL 151 MG/DL (<100); NON-HDL-C 176 MG/DL; PHOSPHORUS LEVEL 2.8 MG/DL (2.5-4.9); POTASSIUM SERUM 4.4 MEQ/L (3.5-5.1); SODIUM LEVEL 138 MEQ/L (136-145); TOTAL PROTEIN 7.3 GM/DL (6.4-8.2); TRIGLYCERIDES LEVEL 127 MG/DL (<150)
[2021-09-09 10:43] LABS: TOTAL 25(OH) VITAMIN D 22.6 NG/ML (30.0-100.0)
== END ==
LOC: M LAB 08:50
PROVIDERS: ATTEND Registered Nurse
DX: F31.61 Bipolar disorder, current episode mixed, mild (principal)

== ENCOUNTER 2023-01-18 23:14 | Emergency (ER) | payer OTHER ==
[~2023-01-18] VITALS: Ht 170.2 cm; Wt 115.7 kg
[2023-01-18 23:14] VITALS: TEMP 98.5
[~2023-01-18 23:14] MED LIST changes: -PAXI30TA11 PO; +PAXI30TA12 PO
[2023-01-19 02:31] VITALS: BP 124/72; O2SAT 97
[2023-01-19] MEDS ORDERED: BOOSTRIX VACCINE (TETANUS/DIPHTH/ACEL. PERTUSSIS) 0.5ML SYR IM.IMMUN ONE (03:35)
== END 2023-01-19 03:46 | disposition home or self-care (01) ==
LOC: M ED 23:14
DX: R55 Syncope and collapse (principal); S06.0X0A Concussion without loss of consciousness, initial encounter; S00.03XA Contusion of scalp, initial encounter; W19.XXXA Unspecified fall, initial encounter; Y92.89 Other specified places as the place of occurrence of the external cause; Y93.89 Activity, other specified; Y99.8 Other external cause status; F31.9 Bipolar disorder, unspecified; Z79.899 Other long term (current) drug therapy

== ENCOUNTER → 2023-02-16 | Outpatient (CLI) | payer OTHER | LOC: M RAD 10:32 | PROVIDERS: ATTEND Nurse Practitioner Family | DX: R55 Syncope and collapse (principal) ==

== ENCOUNTER → 2023-03-12 | Outpatient (CLI) | payer OTHER ==
[2023-03-12 16:21] LABS: BLOOD UREA NITROGEN 7 MG/DL (9-23); CREATININE FOR GFR 0.78 MG/DL (0.70-1.30); GLOMERULAR FILTRATION RATE > 60.0 (>60)
== END ==
LOC: M LAB 14:47
PROVIDERS: ATTEND Psychiatry & Neurology Neurology
DX: I10 Essential (primary) hypertension (principal)

== ENCOUNTER → 2023-05-09 | Outpatient (REF) | payer OTHER ==
[~2023-05-09] MED LIST changes: +EZET10TA58 PO; -ZETI10TA16 PO
== END ==
LOC: M LAB REF 15:57
PROVIDERS: ATTEND Physician Assistant
DX: J02.9 Acute pharyngitis, unspecified (principal)

== ENCOUNTER → 2023-12-19 | Outpatient (REF) | payer OTHER ==
[2023-12-19 19:01] LABS: ALBUMIN 3.8 G/DL (3.2-5.2); ALKALINE PHOSPHATASE 56 U/L (46-116); ALT/SGPT 29 U/L (7.0-40); AST/SGOT 14 U/L (<34); BILIRUBIN,TOTAL 0.3 MG/DL (0.3-1.2); BLOOD UREA NITROGEN 12 MG/DL (9-23); CALCIUM LEVEL 9.6 MG/DL (8.5-10.1); CARBON DIOXIDE LEVEL 30 MMOL/L (20-31); CHLORIDE LEVEL 106 MMOL/L (98-107); CHOLESTEROL LEVEL 190 MG/DL (<200); CHOLESTEROL RISK RATIO 5.19 (<5); CREATININE FOR GFR 0.78 MG/DL (0.70-1.30); GLOMERULAR FILTRATION RATE > 60.0 (>60); GLUCOSE, FASTING 84 MG/DL (60-100); HDL CHOLESTEROL 36.6 MG/DL (>40); LDL CHOLESTEROL 122.2 MG/DL (<100); MAGNESIUM LEVEL 1.8 MG/DL (1.8-2.4); NON-HDL-C 153.4 MG/DL; POTASSIUM SERUM 4.3 MMOL/L (3.5-5.1); SODIUM LEVEL 141 MMOL/L (136-145); TRIGLYCERIDES LEVEL 156 MG/DL (<150)
[2023-12-19 19:03] LABS: THYROID STIMULATING HORMONE 1.313 uIU/ML (0.55-4.78); TOTAL 25(OH) VITAMIN D 13.2 NG/ML (20.0-100.0)
[2023-12-19 19:10] LABS: BASO # 0.1 10^3/uL (0.0-0.2); BASO % 0.7 % (0.0-1.0); EOS # 0.3 10^3/uL (0.0-0.5); EOS % 2.7 % (0.0-3.0); HEMOGLOBIN 15.5 g/dl (13.5-17.5); HEMOGLOBIN A1c 5.4 % (4.0-6.0); LYMPH # 3.4 10^3/uL (1.5-5.0); LYMPH % 37.5 % (24.0-44.0); MEAN CORPUSCULAR HEMOGLOBIN 28.2 pg (27.0-33.0); MEAN CORPUSCULAR HGB CONC 32.3 g/dl (32.0-36.5); MEAN CORPUSCULAR VOLUME 87.4 fl (80.0-96.0); MONO # 0.7 10^3/uL (0.0-0.8); MONO % 7.1 % (2.0-8.0); NEUTROPHILS # 4.7 10^3/uL (1.5-8.5); NEUTROPHILS % 51.8 % (36.0-66.0); PLATELET COUNT, AUTOMATED 403 10^3/uL (150-450); RED BLOOD COUNT 5.49 10^6/uL (4.30-6.10); WHITE BLOOD COUNT 9.1 10^3/uL (4.0-10.0)
== END ==
LOC: M LAB REF 17:29
PROVIDERS: ATTEND Nurse Practitioner Family
DX: E66.9 Obesity, unspecified (principal); E55.9 Vitamin D deficiency, unspecified

== ENCOUNTER → 2024-03-26 | Outpatient (CLI) | payer BC | LOC: M RAD 13:50 | PROVIDERS: ATTEND Nurse Practitioner Family | DX: M54.50 Low back pain, unspecified (principal) ==

== ENCOUNTER 2024-08-20 14:15 | Outpatient (RCR) | payer BC | END 2024-09-05 | LOC: M PT 14:15 | PROVIDERS: ATTEND Nurse Practitioner Family | DX: M54.50 Low back pain, unspecified (principal) ==

== ENCOUNTER 2024-09-19 13:12 | Outpatient (RCR) | payer BC | END 2024-10-03 | LOC: M PT 13:12 | PROVIDERS: ATTEND Nurse Practitioner Family | DX: M54.50 Low back pain, unspecified (principal) ==

== ENCOUNTER → 2025-03-11 | Outpatient (CLI) | payer BC ==
[~2025-03-11] MED LIST changes: +AMMO12CR4 EX; -AMMO12CR7 EX; -DEPA250T32 PO; +DIVA-65 PO
== END ==
LOC: M RAD 12:52
PROVIDERS: ATTEND Nurse Practitioner Family
DX: M43.16 Spondylolisthesis, lumbar region (principal); M25.78 Osteophyte, vertebrae; M51.26 Other intervertebral disc displacement, lumbar region; M47.816 Spondylosis without myelopathy or radiculopathy, lumbar region; M48.061 Spinal stenosis, lumbar region without neurogenic claudication

== ENCOUNTER 2025-04-14 11:20 | Emergency (ER) | payer BC ==
[~2025-04-14] VITALS: Ht 170.2 cm; Wt 108.8 kg
[2025-04-14 11:33] VITALS: TEMP 96.4
[2025-04-14 14:15] VITALS: BP 143/84; O2SAT 97
== END 2025-04-14 15:02 | disposition home or self-care (01) ==
LOC: M ED 11:20 → EDBD 11:20 → M ED 15:02
DX: S00.03XA Contusion of scalp, initial encounter (principal); S20.212A Contusion of left front wall of thorax, initial encounter; S60.221A Contusion of right hand, initial encounter; Y92.410 Unspecified street and highway as the place of occurrence of the external cause; Y93.9 Activity, unspecified; Y99.9 Unspecified external cause status; I10 Essential (primary) hypertension; K21.9 Gastro-esophageal reflux disease without esophagitis; F41.9 Anxiety disorder, unspecified; F32.A Depression, unspecified

== ENCOUNTER → 2025-04-20 | Outpatient (REF) | payer BC ==
[2025-04-20 18:37] LABS: PLATELET COUNT, AUTOMATED 415 10^3/uL (150-450)
[2025-04-20 19:03] LABS: ALT/SGPT 37 U/L (7.0-40); AST/SGOT 26 U/L (<34); CALCIUM LEVEL 8.8 MG/DL (8.5-10.1); CARBON DIOXIDE LEVEL 27 MMOL/L (20-31); CHLORIDE LEVEL 104 MMOL/L (98-107); CHOLESTEROL LEVEL 218 MG/DL (<200); CHOLESTEROL RISK RATIO 5.10 (<5); CREATININE FOR GFR 1.01 MG/DL (0.70-1.30); GLOMERULAR FILTRATION RATE > 90.0 (>60); LDL CHOLESTEROL 151.7 MG/DL (<100); NON-HDL-C 175.3 MG/DL; POTASSIUM SERUM 4.7 MMOL/L (3.5-5.1); SODIUM LEVEL 135 MMOL/L (136-145); TRIGLYCERIDES LEVEL 118 MG/DL (<150)
[2025-04-20 19:25] LABS: ESTIMATED AVERAGE GLUCOSE 120.0 MG/DL (60-110)
== END ==
LOC: M LAB REF 16:29
PROVIDERS: ATTEND Nurse Practitioner Family
DX: E78.2 Mixed hyperlipidemia (principal); G47.00 Insomnia, unspecified; S09.90XD Unspecified injury of head, subsequent encounter; T14.8XXA Other injury of unspecified body region, initial encounter; R42 Dizziness and giddiness; S06.0X0D Concussion without loss of consciousness, subsequent encounter; Z91.89 Other specified personal risk factors, not elsewhere classified